=== PATIENT | female | born 1965 | race African-American/Black ===

== ENCOUNTER 2018-04-29 20:49 | Inpatient (IN) | payer OTHER ==
--- NOTE | 2018-04-29 22:59 | PDOC ---
History of Present Illness - General Stated Complaint: HYPERTENSION Time Seen by Provider: 04/29/18 22:25 History Source: Patient Exam Limitations: No Limitations - History of Present Illness Initial Comments: 52 y/o female presenting to [facility] ER from [facility] for elevated blood pressure. Pt denies symptoms, no chief complaint. States she would not be aware her blood pressure was elevated if it had not been checked. Pt has h/o HTN managed with Clonidine and Metoprolol XR. Per chart, pt took clonidine 0.1 mg and metropolol XR 50 mg at 17:00 today. Pt transported here for persistent HTN. PCP: [facility] in [place]. Has not been evaluated in a long time. States she has enough prescription medication. Medical Hx: - HTN - Insulin dependent diabetes - Tremor - Diabetic Neuropathy Surgical Hx: - Pt denies surgical history. Past History - Past Medical History Allergies/Adverse Reactions: Allergies Allergy/AdvReac Type Severity Reaction Status Date / Time No Known Allergies Allergy Verified 04/29/18 16:58 Home Medications: Ambulatory Orders Clonidine HCl 0.1 mg PO BID 04/29/18 Clotrimazole/Betamethasone Dip [Clotrimazole-Betamethasone Crm] 45 gm TP BID Gabapentin [Neurontin -] 300 mg PO BID 04/29/18 Insulin Glargine,Hum.rec.anlog [Lantus Solostar PEN (NF)] 20 units SQ DAILY Insulin Glargine,Hum.rec.anlog [Lantus Solostar PEN (NF)] 30 units SQ HS Metoprolol Succinate [Toprol Xl -] 50 mg PO DAILY 04/29/18 Multivitamins [Tab-A-Vit -] 1 tab PO DAILY 04/29/18 Omeprazole 20 mg PO DAILY 04/29/18 Review of Systems - Review of Systems Able to Perform ROS?: Yes Comments:: In addition to that documented in the HPI above, the additional ROS was obtained : Constitutional: Denies fevers or chills Eyes: Denies vision changes ENMT: Denies sore throat CV: Denies chest pain Resp: Denies SOB GI: Denies vomiting or diarrhea : Denies painful urination MSK: Denies recent trauma Skin: Denies new rashes Neuro: Denies new numbness or tingling or weakness *Physical Exam - Physical Exam Comments: Constitutional: Well-developed, well-nourished female in no acute distress. Found semi-fowlers in hospital bed. Alert and oriented x4. Answered all questions appropriately and completely. Speech was non-labored, non-pressured. HEENT: Normocephalic. No obvious external signs of trauma. Hearing grossly normal. No nasal discharge. Neck is supple, trachea is midline. Cardiovascular: Regular rate and regular rhythm. No murmur, rubs, clicks, or gallops. Peripheral pulses: Radial pulses full. Respiratory: Breathing unlabored. Equal chest rise and fall. Clear to auscultation bilaterally. No stridor, no wheezing, no rhonchi. Gastrointestinal: abdomen is soft, non-tender, non-distended. Neuro: Alert and oriented. Moving all four extremities spontaneously. Intact sensation to all four extremities. Upper and lower proximal and distal strength 5/5, property management assistant strength 5/5 - equal and symmetric. Plantar flexion and dorsiflexion 5 /5. Head and neck tremor (baseline per pt). Skin: Warm, dry, and intact. No bruising, rashes, or other lesions. Psych: Affect: appropriate. Mood: normal. ED Treatment Course - LABORATORY CBC & Chemistry Diagram: 05/02/18 06:00 05/02/18 06:00 Medical Decision Making - Medical Decision Making *Reviewed vital signs, nursing notes, and prior visit documentation (if available). 52 y/o female with hypertension noted at [facility] despite administration of home medications. Pt denies symptoms. Afebrile. Benign physical exam. Right arm BP: 142/93 Left arm BP: 226/95 (confirmed with second machine) CBC unremarkable for anemia or leukocytosis. CMP revealed azotemia. Suspect pre-renal as ratio is 19. No prior labs available for comparison. Pt denies knowledge of h/o renal pathology. Suspect ANITHA versus CKD with possible overlying ANITHA. Will order NS IV drip. On recheck, pts blood pressure remains elevated and is now equal bilaterally. Will ordered dose of home clonidine. 02:36 Microblog sent to [facility] for admission for ANITHA and hypertensive urgency. 03:17 Hospitalist attending requests pt to be sent to the unit and started on dip. Telephone consult with ICU resident Dr. Casey. Will recheck vitals as pt received clonidine one hour ago, and report back. 03:33 BP elevated to 220/52. Will stop NS drip and start nicardipine drip. Requested pt to be moved to a room with q15 vitals. Initial MAP 150, goal to drop MAP 20% to 120. 04:[address] Casey pts new vitals signs on the nicardipine. States pt can be sent to the ICU unit when the admitting team finished their bedside evaluation. *DC/Admit/Observation/Transfer Diagnosis at time of Disposition: ANITHA (acute kidney injury), Hypertensive urgency - Discharge Dispostion Condition at time of disposition: Fair Decision to Admit order: Yes - Referrals - Patient Instructions - Post Discharge Activity
[2018-04-30 00:20] LABS: BASO % 0.4 % (0-2.0); HEMATOCRIT 29.7 % (32.4-45.2); HEMOGLOBIN 9.8 GM/dL (10.7-15.3); LYMPH % 29.5 % (8-40); MCH 30.6 pg (25.7-33.7); MCHC 32.9 g/dl (32.0-36.0); MEAN CELL VOLUME 92.9 fl (80-96); MEAN PLT VOLUME 9.8 fl (7.5-11.1); MONO % 8.3 % (3.8-10.2); NEUT % 59.8 % (42.8-82.8); PLATELET COUNT 170 K/MM3 (134-434); RBC 3.19 M/mm3 (3.60-5.2); WHITE BLOOD COUNT 5.4 K/mm3 (4.0-10.0)
--- NOTE | 2018-04-30 00:36 | PDOC ---
Attending Attestation - Resident Resident Name: Leandro Gonzalez - ED Attending Attestation I have performed the following: I have examined & evaluated the patient, The case was reviewed & discussed with the resident, I agree w/resident's findings & plan, Exceptions are as noted - HPI HPI: 04/30/18 00:33 The patient is a 52 year old female, with a significant past medical history of IDDM, HTN, and polysubstance abuse (heroin, alcohol, and benzo dependence), who presents to the emergency department with elevated blood pressure. As per [facility], she was given clonidine 0.1 mg and metoprolol XR 50 mg at 5:00pm. Upon arrival, the patient is asymptomatic. She denies recent fevers, chills, headache or dizziness. She denies recent nausea, vomit, diarrhea or constipation. She denies recent dysuria, frequency, urgency or hematuria. She denies recent chest pain or shortness of breath. Allergies: NKA Past surgical history: None reported. Social history: Polysubstance abuse- heroin, alcohol, and benzo dependence. - Physicial Exam PE: 04/30/18 00:34 GENERAL: Awake, alert, and fully oriented, in no acute distress HEAD: No signs of trauma EYES: PERRLA, EOMI, sclera anicteric, conjunctiva clear ENT: Auricles normal inspection, hearing grossly normal, nares patent, oropharynx clear without exudates. Moist mucosa NECK: Normal ROM, supple, no lymphadenopathy, JVD, or masses LUNGS: Breath sounds equal, clear to auscultation bilaterally. No wheezes, and no crackles HEART: Regular rate and rhythm, normal S1 and S2, no murmurs, rubs or gallops ABDOMEN: Soft, nontender, normoactive bowel sounds. No guarding, no rebound. No masses EXTREMITIES: Normal range of motion, no edema. No clubbing or cyanosis. No cords, erythema, or tenderness NEUROLOGICAL: Normal speech, cranial nerves intact, negative pronator drift, 5/ 5 strength in all 4 extremities, normal sensation to light touch in all 4 extremities, normal cerebellar exam, normal gait, normal reflexes and tone SKIN: Warm, Dry, normal turgor, no rashes or lesions noted. - Medical Decision Making 04/30/18 00:48 52yo undomiciled F with hx HTN, IDDM, PSA presents to the ED with elevated BP. BP asymmetric btwn arm. Pt also with ANITHA and creatinine of 3.3. Has no hx renal failure. Will admit for further mgmt.
[2018-04-30 00:41] LABS: ALBUMIN 3.3 g/dl (3.4-5.0); ANION GAP 6 MMOL/L (8-16); BLOOD UREA NITROGEN 63 mg/dL (7-18); CALCIUM 9.1 mg/dL (8.5-10.1); CHLORIDE 107 mmol/L (98-107); CO2 29 mmol/L (21-32); CREATININE 3.3 mg/dL (0.55-1.3); GLUCOSE,RANDOM 135 mg/dL (74-106); POTASSIUM 4.4 mmol/L (3.5-5.1); SGOT/AST 43 U/L (15-37); SGPT/ALT 43 U/L (13-61); SODIUM 142 mmol/L (136-145)
[2018-04-30 00:42] LABS: ALK PHOS 114 U/L (45-117); BILIRUBIN,TOTAL 0.3 mg/dL (0.2-1)
[2018-04-30] MEDS ORDERED: SODIUM CHLORIDE 1,000 ML IV SCH (02:15)
[2018-04-30] MEDS ORDERED: cloNIDine HCL 0.1 MG TABLET PO ONE ×2 (02:31→08:50)
[2018-04-30] MEDS ORDERED: cloNIDine HCL 0.1 MG TABLET ONE (02:43)
[2018-04-30] MEDS ORDERED: NICARDIPINE 25 MG in DEXTROSE 5%-WATER - 240 ML IVPB SCH (03:45)
--- NOTE | 2018-04-30 05:22 | CONSULT ---
Consultation: CONSULT REQUEST: We have been asked to medically evaluate this patient for critical care. HISTORY OF PRESENT ILLNESS: 52 y/o F w/PMH of HTN, Hep C, pancreatitis, DM, multisubstance abuse (heroin - snorts 7-10 bags/day, xanax, percocet, alcohol three 16 ounce beers/day; states last use for any substance was 1 week ago) presents to the ER from [facility] where she was checking in for rehab. She was found to have elevated BP 200/100 and sent to [facility]. Pt states she takes clonidine and metoprolol daily and is compliant but forgot to take it yesterday. She is homeless but her sister buys her the medications she needs and has been doing so for years. Currently the pt denies any IQBAL, light-headedness, dizziness, visual changes, tinnitus, N/V/F/C , CP, SOB, abd pain, dysuria, blood in urine, diarrhea, constipation. She denies any hx of kidney disease but notes that many years ago she had gotten abx as an outpatient and was referred to a electrical plumbing supervisor but never followed up. PMH: HTN, Hep C (not treated), DM, multisubstance abuse (heroin - snorts 7-10 bags/day, xanax, percocet, alcohol three 16 ounce beers/day; states last use for any substance was 1 week ago) PSHx: denies any surgeries SH: -Never been hospitalized in the past -Homeless -Smokes 1ppd -snorts heroin 7-10 bags/day, uses xanax and percocet when she can get them. Last use for any of the substances was reportedly 1 week ago. -Drinks 3 sixteen ounce beers/day; last use was reportedly 1 week ago FH: DM, Heart conditions Allergies: NKDA Meds: Clonidine, Metoprolol. Her sister has been buying them for her for years. REVIEW OF SYSTEMS: CONSTITUTIONAL: Absent: fever, chills, diaphoresis HEENT: Absent: tinnitus, visual changes CARDIOVASCULAR: Absent: chest pain, light-headedness RESPIRATORY: Absent: cough, shortness of breath GASTROINTESTINAL: Absent: abdominal pain, nausea, vomiting, diarrhea, constipation GENITOURINARY: Absent: dysuria, hematuria NEUROLOGIC: Absent: headache, focal weakness, dizziness PHYSICAL EXAMINATION Vital Signs - 24 hr 04/29/18 04/30/18 04/30/18 21:05 02:19 03:47 Temperature 97.7 F 97.7 F Pulse Rate 60 Pulse Rate [ 61 54 L Right Radial] Respiratory 17 16 14 Rate Blood Pressure 208/52 Blood Pressure 211/52 259/96 [Left Arm] O2 Sat by Pulse 100 100 99 Oximetry (%) 04/30/18 04/30/18 04:05 04:34 Temperature Pulse Rate 61 Pulse Rate [ 80 Right Radial] Respiratory 29 H Rate Blood Pressure 259/96 Blood Pressure 195/79 [Left Arm] O2 Sat by Pulse 97 Oximetry (%) GENERAL: Awake, alert, and fully oriented, in no acute distress. HEAD: Normal with no signs of trauma. EYES: Pupils equal, round and reactive to light, extraocular movements intact, sclera anicteric, conjunctiva clear. No papilledema noted on fundoscopy. EARS, NOSE, THROAT: Ears normal, nares patent, Moist mucous membranes. NECK: Normal range of motion LUNGS: Breath sounds equal, clear to auscultation bilaterally HEART: Regular rate and rhythm, normal S1 and S2 ABDOMEN: Soft, nontender, not distended, normoactive bowel sounds LOWER EXTREMITIES: warm, well-perfused. No peripheral edema. NEUROLOGICAL: Cranial nerves intact. 5/5 UE and LE strength. Sensation to light touch intact and equal in b/l UE and LE. PSYCHIATRIC: Cooperative. Good eye contact. Appropriate mood and affect. SKIN: Warm, dry Laboratory Results - last 24 hr 04/29/18 04/29/18 23:57 23:57 WBC 5.4 RBC 3.19 L Hgb 9.8 L Hct 29.7 L MCV 92.9 MCH 30.6 MCHC 32.9 RDW 15.0 Plt Count 170 MPV 9.8 Absolute Neuts (auto) 3.2 Neutrophils % 59.8 Lymphocytes % 29.5 Monocytes % 8.3 Eosinophils % 2.0 Basophils % 0.4 Nucleated RBC % 0 Sodium 142 Potassium 4.4 Chloride 107 Carbon Dioxide 29 Anion Gap 6 L BUN 63 H Creatinine 3.3 H Creat Clearance w eGFR 14.80 Random Glucose 135 H Calcium 9.1 Total Bilirubin 0.3 AST 43 H ALT 43 Alkaline Phosphatase 114 Total Protein 7.0 Albumin 3.3 L Active Medications Generic Name Dose Route Start Last Admin Trade Name Freq PRN Reason Stop Dose Admin Chlorhexidine Gluconate 1 applic 04/30/18 22:00 Hibiclens For Decolonization - TP HS MARTINA Heparin Sodium (Porcine) 5,000 unit 04/30/18 10:00 Heparin - SQ Q8H-IV MARTINA Nicardipine HCl 25 mg/ 250 mls @ 25 mls/hr 04/30/18 03:45 04/30/18 04:05 Dextrose IVPB 2.5 mg/hr TITR MARTINA 25 mls/hr Administration Protocol 2.5 MG/HR Mupirocin 1 applic 04/30/18 10:00 Bactroban Ointment (For Decolonization) - NS 05/05/18 09:59 BID MARTINA ASSESSMENT/PLAN: 52 y/o F w/PMH of HTN, Hep C, pancreatitis, DM, multisubstance abuse (heroin - snorts 7-10 bags/day, xanax, percocet, alcohol three 16 ounce beers/day; states last use for any substance was 1 week ago) presents to the ER from [facility] for elevated BP. In ICU for hypertensive emergency vs urgency. -Hypertensive Emergency vs Urgency -Pt has elevated Cr but unknown baseline. No other signs of organ damage noted. -BP in ER was 259/96 -Pt was given Clonidine 0.1 mg PO in ER with no effect on BP and was started on nicardipine drip at 2.5 mg/hr and BP came down to 140/104. Drip is currently held. -Will continue with nicardipine drip with goal sBP of 200 initially within 1st hour. Titrate to goal of 180 after initial improvement to approximately sBP to 200. -Continue with home meds of clonidine 0.1 mg po bid, toprol xl 50 qd -f/u Head CT, UA, Utox, trops -Possible ANITHA on CKD -No baseline Cr in chart and pt does not know if she has kidney disease -Monitor BUN/Cr -Will hold off on fluids for now with HTN -Check FeNa -Renal U/S -DM -ISS, BGMs -Multisubstance abuse -Monitor for signs of withdrawal. Pt uses alcohol, benzos, opioids -DVT ppx -heparin 5000 units sq q8h -FEN -No fluids -Monitor electrolytes -If no signs of stroke can start diet -Dispo -Monitor in the ICU Visit type - Emergency Visit Emergency Visit: Yes ED Registration Date: 04/30/18 Care time: The patient presented to the Emergency Department on the above date and was hospitalized for further evaluation of their emergent condition. - New Patient This patient is new to me today: Yes Date on this admission: 04/30/18 - Critical Care Critical Care patient: Yes Total Critical Care Time (in minutes): 40 Critical Care Statement: The care of this patient involved high complexity decision making to prevent further life threatening deterioration of the patient 's condition and/or to evaluate & treat vital organ system(s) failure or risk of failure.
[2018-04-30 05:25] LABS: URINE APPEARANCE CLEAR; URINE BILIRUBIN NEGATIVE (<2.0 mg/dL); URINE COLOR STRAW; URINE GLUCOSE (UA) NEGATIVE (NEGATIVE); URINE KETONE NEGATIVE (NEGATIVE); URINE LEUK ESTERASE TRACE (NEGATIVE); URINE NITRITE NEGATIVE (NEGATIVE); URINE UROBILINOGEN NEGATIVE mg/dL (0.2-1.0)
[2018-04-30 05:26] LABS: URINE CREATININE 31.5 mg/dL (30-50)
[2018-04-30 05:29] LABS: OPIATES, URI NEGATIVE ng/ml (CUTOFF=300); URINE AMPHETAMINES NEGATIVE ng/ml (CUTOFF=500)
--- NOTE | 2018-04-30 05:36 | HP ---
CHIEF COMPLAINT: elevated blood pressure PCP: HISTORY OF PRESENT ILLNESS: 52 y/o female with PMH of HTN, DM, Hepc, pancreatitis, polysubstance abuse ( abuses heroin and opiates), presents to the ED from [facility] rehab center after patient was found to have a BP of 200/100. Patient was checking in to [facility] for rehab. She states that her BP is never usually this high and she has never been hospitalized for having high blood pressure in the past. Patient is homeless and goes to multiple free clinics around the city for her healthcare maintenance, however, she does take medications for her health problems. Patient is currently denying any headaches/blurred vision and is not experiencing any chest pain or trouble breathing, though she was lethargic during the interview. ER course was notable for: (1) BP on arrival was 208/52; patient given clonidine 0.1 and BP stayed elevated with max being 259/96 (2) after clonidine; patient started on nicardipine drip and transferred to ICU (3) head CT done given patients change in mental status and increased lethargy (4)patient found to have elevated BUN/Cr- baseline is unclear however patient was told to stya away from ibuprofen because of her kidneys Recent Travel: none PAST MEDICAL HISTORY: see above PAST SURGICAL HISTORY: denies Social History: Smoking: .5 ppd smoker for many years Alcohol: drinks 3-4 beers a day Drugs: abuses heroin and opiates; last drug use was last week according to patient Family History: DM and HTN on mother and fathers side Allergies No Known Allergies Allergy (Verified 04/29/18 16:58) HOME MEDICATIONS: Home Medications Medication Instructions Recorded Clonidine HCl 0.1 mg PO BID 04/29/18 Clotrimazole/Betamethasone Dip 45 gm TP BID 04/29/18 [Clotrimazole-Betamethasone Crm] Gabapentin [Neurontin -] 300 mg PO BID 04/29/18 Insulin Glargine,Hum.rec.anlog 20 units SQ DAILY 04/29/18 [Lantus Solostar PEN (NF)] Insulin Glargine,Hum.rec.anlog 30 units SQ HS 04/29/18 [Lantus Solostar PEN (NF)] Metoprolol Succinate [Toprol Xl -] 50 mg PO DAILY 04/29/18 Multivitamins [Tab-A-Vit -] 1 tab PO DAILY 04/29/18 Omeprazole 20 mg PO DAILY 04/29/18 REVIEW OF SYSTEMS CONSTITUTIONAL: Absent: fever, chills, diaphoresis, generalized weakness, malaise, loss of appetite, weight change HEENT: Absent: rhinorrhea, nasal congestion, throat pain, throat swelling, difficulty swallowing, mouth swelling, ear pain, eye pain, visual changes CARDIOVASCULAR: Absent: chest pain, syncope, palpitations, irregular heart rate, lightheadedness , peripheral edema RESPIRATORY: Absent: cough, shortness of breath, dyspnea with exertion, orthopnea, wheezing, stridor, hemoptysis GASTROINTESTINAL: Absent: abdominal pain, abdominal distension, nausea, vomiting, diarrhea, constipation, melena, hematochezia GENITOURINARY: Absent: dysuria, frequency, urgency, hesitancy, hematuria, flank pain, genital pain MUSCULOSKELETAL: Absent: myalgia, arthralgia, joint swelling, back pain, neck pain SKIN: Absent: rash, itching, pallor HEMATOLOGIC/IMMUNOLOGIC: Absent: easy bleeding, easy bruising, lymphadenopathy, frequent infections ENDOCRINE: Absent: unexplained weight gain, unexplained weight loss, heat intolerance, cold intolerance NEUROLOGIC: Absent: headache, focal weakness or paresthesias, dizziness, unsteady gait, seizure, mental status changes, bladder or bowel incontinence PSYCHIATRIC: Absent: anxiety, depression, suicidal or homicidal ideation, hallucinations. PHYSICAL EXAMINATION Vital Signs - 24 hr 04/29/18 04/30/18 04/30/18 21:05 02:19 03:47 Temperature 97.7 F 97.7 F Pulse Rate 60 Pulse Rate [ 61 54 L Right Radial] Respiratory 17 16 14 Rate Blood Pressure 208/52 Blood Pressure 211/52 259/96 [Left Arm] O2 Sat by Pulse 100 100 99 Oximetry (%) 04/30/18 04/30/18 04:05 04:34 Temperature Pulse Rate 61 Pulse Rate [ 80 Right Radial] Respiratory 29 H Rate Blood Pressure 259/96 Blood Pressure 195/79 [Left Arm] O2 Sat by Pulse 97 Oximetry (%) GENERAL: lethargic, somnolent but arousable . EYES: Pupils equal, round and reactive to light, extraocular movements intact, sclera anicteric, conjunctiva clear. No lid lag. NECK: no JDV appreciated LUNGS: CTA B/L; no rales, rhonchi, or wheezing . HEART: Regular rate and rhythm, normal S1 and S2 without murmur, rub or gallop. ABDOMEN: Soft, nontender, not distended, normoactive bowel sounds, no guarding, no rebound, no masses. No hepatomegaly or splenomegaly. MUSCULOSKELETAL: Normal range of motion at all joints. No bony deformities or tenderness. No CVA tenderness. EXTREMITIES: warm; well-perfused; no clubbing/cyanosis/edema NEUROLOGICAL: Cranial nerves II-XII intact. Normal speech. Normal gait. 5/5 strength B/L; sensation fully intact PSYCHIATRIC: Cooperative. Good eye contact. Appropriate mood and affect. SKIN: Warm, dry, normal turgor, no rashes or lesions noted, normal capillary refill. Laboratory Results - last 24 hr 04/29/18 04/29/18 23:57 23:57 WBC 5.4 RBC 3.19 L Hgb 9.8 L Hct 29.7 L MCV 92.9 MCH 30.6 MCHC 32.9 RDW 15.0 Plt Count 170 MPV 9.8 Absolute Neuts (auto) 3.2 Neutrophils % 59.8 Lymphocytes % 29.5 Monocytes % 8.3 Eosinophils % 2.0 Basophils % 0.4 Nucleated RBC % 0 Sodium 142 Potassium 4.4 Chloride 107 Carbon Dioxide 29 Anion Gap 6 L BUN 63 H Creatinine 3.3 H Creat Clearance w eGFR 14.80 Random Glucose 135 H Calcium 9.1 Total Bilirubin 0.3 AST 43 H ALT 43 Alkaline Phosphatase 114 Total Protein 7.0 Albumin 3.3 L ASSESSMENT/PLAN: 52 y/o female with PMH of HTN, DM, Hep C, pancreatitis, polysubstance abuse who presents to the ED after being sent from [facility] where she was found to have an elevated BP of 200/100, now found to be slightly more lethargic than originally on presentation; max BP was 269/96. # Hypertensive Emergency patient currently on a nicardipine drip for BP control- titrate to goal of systolic BP of 180; avoid rapid drop in BP -f/u results of head CT - troponin pending - neuro checks if necessary -c/w home meds clonidine 0.1, toprol XL 50 -f/u utox/ua # ANITHA v. CKD patients baseline Cr unclear as no prior records in system and patient unaware if she has kidney disease -Renal U/S pending -f/u urine electrolytes -monitor BUN/Cr -avoid nephrotoxic drugs -hold off fluids for now given HTN -monitor I's and O's #DM -hold patients home diabetes medications -started patient on ISS DVT prophylaxis: Heparin 5000 SQ TID F/E/N hold off fluids replete electrolytes if needed diabetic diet dispo: ICU Problem List - Problem (1) ANITHA (acute kidney injury) Code(s): N17.9 - ACUTE KIDNEY FAILURE, UNSPECIFIED (2) Hypertensive urgency Code(s): I16.0 - HYPERTENSIVE URGENCY Visit type - Emergency Visit Emergency Visit: Yes ED Registration Date: 04/30/18 Care time: The patient presented to the Emergency Department on the above date and was hospitalized for further evaluation of their emergent condition. - New Patient This patient is new to me today: Yes Date on this admission: 04/30/18 - Critical Care Critical Care patient: No Hospitalist Screening - Colonoscopy Questionnaire Colonoscopy Questionnaire: Colonoscopy Questionnaire - Patient: 50 - 75 years old and never had a screening colonoscopy: Unknown History of colon or rectal polyps, or CA: Unknown History of IBD, Crohn's disease or UC: Unknown History of abdominal radiation therapy as a child: Unknown - Relative: 1 with colon or rectal CA, or polyps at age 60 or younger: Unknown Colon or rectal CA diagnosed at age 45 or younger: Unknown Multiple relatives with colon or rectal CA: Unknown - Outcome: Screening Result: Negative Screen
[2018-04-30 05:40] LABS: COCAINE, UR NEGATIVE ng/ml (CUTOFF=300); METHADONE, UR NEGATIVE ng/ml (CUTOFF=300); PHENCYCLIDINE,URINE NEGATIVE ng/ml (CUTOFF=25); URINE BARBITURATES NEGATIVE ng/ml (CUTOFF=200)
[2018-04-30] MEDS: HEPARIN NA (PORCINE) 5,000 UNITS/ML 1ML VIAL SQ SCH ×3 (05:48→21:44)
[2018-04-30 05:49] LABS: URINE BENZODIAZEPINES POSITIVE ng/ml (CUTOFF=200)
[2018-04-30 05:52] LABS: URINE PROTEIN 2+ (NEGATIVE)
[2018-04-30 05:57] LABS: EPI CELLS RARE /HPF (FEW); GRANULAR CASTS 1 /lpf; URINE BACTERIA RARE /hpf (NONE SEEN)
--- NOTE | 2018-04-30 05:57 | PN ---
Teaching Attending Note Name of Resident: Naya Blake ATTENDING PHYSICIAN STATEMENT I saw and evaluated the patient. Chart, data, imaging reviewed. I reviewed the resident's note and discussed the case with the resident. I agree with the resident's findings and plan as documented. SUBJECTIVE: 52 y/o undomiciled woman polysubstance abuse (abuses heroin and opiates) sent from [facility] detox facility to [facility] for severe hypertension management which did not respond to clonidine given in [facility]. Patient with systolic 208 upon arrival to [facility]. No complaints. She is unsure if she had any past history of kidney disease. OBJECTIVE: Last Vital Signs Temp Pulse Resp BP Pulse Ox 98.0 F 62 14 196/84 97 04/30/18 05:03 04/30/18 05:03 04/30/18 05:03 04/30/18 05:03 04/30/18 04:34 general- aaox3, nontoxic heent- no scleral pallor or injection neck -supple, jvd cv - s1+S2+rrr chest clear abdomen -soft, nt, bs+, no cva tenderness ext -no pedal edema Abnormal Lab Results 04/29/18 04/29/18 04/30/18 23:57 23:57 04:55 RBC 3.19 L Hgb 9.8 L Hct 29.7 L Anion Gap 6 L BUN 63 H Creatinine 3.3 H Random Glucose 135 H AST 43 H Albumin 3.3 L Urine Protein 2+ H Benzodiazepines Screen 04/30/18 04/30/18 04:55 04:55 RBC Hgb Hct Anion Gap BUN Creatinine Random Glucose AST Albumin Urine Protein 93 H Benzodiazepines Screen Positive A* ekg- no acute ischemic changes appreciated ASSESSMENT AND PLAN: #Hypertensive emergency with possible ANITHA (unknown baseline cr). May be refractory hypertension if pt stopped clonidine. Would also r/o acute intracranial events given previous lethargy. -admit to ICU -nicardipine drip ordered -goal- lower BP by 25% in first 4 hrs -order troponin -head CT to r/o intracranial hemorrhage -UA -urine drug screen #ANITHA vs CKD - no baseline to compare -beckman catheter -i/o -daily weights -avoid nephrotoxins -renal u/s -obtain baseline kidney function info from outside pcp -urine lytes -urine osm, serum osm -heparin sc for dvt ppx
[2018-04-30] MEDS: INSULIN SLIDING SCALE (NOVOLOG) 1 VIAL SQ SCH ×4 (06:18→21:46)
[2018-04-30 08:20] LABS: BASO % 0.4 % (0-2.0); EOS % 2.1 % (0-4.5); HEMATOCRIT 31.4 % (32.4-45.2); HEMOGLOBIN 10.5 GM/dL (10.7-15.3); LYMPH % 26.6 % (8-40); MCH 31.1 pg (25.7-33.7); MCHC 33.4 g/dl (32.0-36.0); MEAN CELL VOLUME 93.1 fl (80-96); MEAN PLT VOLUME 9.5 fl (7.5-11.1); NEUT % 63.9 % (42.8-82.8); PLATELET COUNT 166 K/MM3 (134-434); RBC 3.37 M/mm3 (3.60-5.2); RDW 14.8 % (11.6-15.6)
[2018-04-30 08:57] LABS: CHLORIDE 110 mmol/L (98-107); SODIUM 145 mmol/L (136-145)
[2018-04-30 09:10] LABS: ALBUMIN 3.3 g/dl (3.4-5.0); ALK PHOS 113 U/L (45-117); ANION GAP 8 MMOL/L (8-16); BILIRUBIN,TOTAL 0.3 mg/dL (0.2-1); BLOOD UREA NITROGEN 55 mg/dL (7-18); CALCIUM 9.5 mg/dL (8.5-10.1); CHOLESTEROL 212 mg/dL (50-200); CO2 27 mmol/L (21-32); CREATININE 3.1 mg/dL (0.55-1.3); GLUCOSE,RANDOM 78 mg/dL (74-106); HDL CHOLESTEROL 78 mg/dL (40-60); MAGNESIUM 2.2 mg/dL (1.8-2.4); PHOSPHOROUS 3.7 mg/dL (2.5-4.9); SGOT/AST 42 U/L (15-37); SGPT/ALT 44 U/L (13-61); TRIGLYCERIDES 131 mg/dL (0-150)
--- NOTE | 2018-04-30 09:16 | PN ---
Physical Exam: SUBJECTIVE: Patient seen and examined this AM. No acute events overnight, although BP still elevated this AM with systolic up to 150-170s. Pt asymptomatic , denies chest pain, SOB, vision changes, head pain, nausea/vomiting. She has been passing urine without difficulty and tolerating PO intake. OBJECTIVE: Vital Signs Period Temp Pulse Resp BP Sys/Lo[place]on Pulse Ox Last 24 Hr 97.7 F-98.0 F 54-80 14-29 171-259/52-96 97-100 GENERAL: The patient is awake, alert, and fully oriented, in no acute distress. HEAD: Normal with no signs of trauma. EYES: PERRL, extraocular movements intact, sclera anicteric, conjunctiva clear. No ptosis. Fundoscopic exam: showed dilation of vessels, no obvious hemorrhage. Difficult to visualize without dilation. Could not visualize optic disc. ENT: Ears normal, nares patent, oropharynx clear without exudates, moist mucous membranes. NECK: Trachea midline, full range of motion, supple. LUNGS: Breath sounds equal, clear to auscultation bilaterally, no wheezes, no crackles, no accessory muscle use. HEART: Regular rate and rhythm, S1, S2 without murmur, rub or gallop. ABDOMEN: Soft, nontender, nondistended, normoactive bowel sounds, no guarding, no rebound, no hepatosplenomegaly, no masses. EXTREMITIES: 2+ pulses, warm, well-perfused, no edema. NEUROLOGICAL: Pt has b/l hand tremor and head tremor, which she states is baseline for her. Cranial nerves II through XII grossly intact. Slow speech, gait normal. PSYCH: Normal mood, normal affect, pt very cooperative with exam and questioning. SKIN: Warm, dry, normal turgor, no rashes or lesions noted. Laboratory Results - last 24 hr 04/29/18 04/29/18 04/30/18 23:57 23:57 04:55 WBC 5.4 RBC 3.19 L Hgb 9.8 L Hct 29.7 L MCV 92.9 MCH 30.6 MCHC 32.9 RDW 15.0 Plt Count 170 MPV 9.8 Absolute Neuts (auto) 3.2 Neutrophils % 59.8 Lymphocytes % 29.5 Monocytes % 8.3 Eosinophils % 2.0 Basophils % 0.4 Nucleated RBC % 0 Sodium 142 Potassium 4.4 Chloride 107 Carbon Dioxide 29 Anion Gap 6 L BUN 63 H Creatinine 3.3 H Creat Clearance w eGFR 14.80 POC Glucometer Random Glucose 135 H Hemoglobin A1c % Calcium 9.1 Phosphorus Magnesium Total Bilirubin 0.3 AST 43 H ALT 43 Alkaline Phosphatase 114 Troponin I Total Protein 7.0 Albumin 3.3 L Triglycerides Cholesterol Total LDL Cholesterol HDL Cholesterol Urine Color Straw Urine Appearance Clear Urine pH 7.0 Ur Specific White 1.008 Urine Protein 2+ H Urine Glucose (UA) Negative Urine Ketones Negative Urine Blood Negative Urine Nitrite Negative Urine Bilirubin Negative Urine Urobilinogen Negative Ur Leukocyte Esterase Trace Urine WBC (Auto) 3 Urine RBC (Auto) <1 Ur Epithelial Cells Rare Urine Bacteria Rare Granular Casts 1 Ur Random Sodium Urine Creatinine Opiates Screen Methadone Screen Barbiturate Screen Phencyclidine Screen Ur Amphetamines Screen MDMA (Ecstasy) Screen Benzodiazepines Screen Cocaine Screen U Marijuana (THC) Screen 04/30/18 04/30/18 04/30/18 04:55 04:55 04:55 WBC RBC Hgb Hct MCV MCH MCHC RDW Plt Count MPV Absolute Neuts (auto) Neutrophils % Lymphocytes % Monocytes % Eosinophils % Basophils % Nucleated RBC % Sodium Potassium Chloride Carbon Dioxide Anion Gap BUN Creatinine Creat Clearance w eGFR POC Glucometer Random Glucose Hemoglobin A1c % Calcium Phosphorus Magnesium Total Bilirubin AST ALT Alkaline Phosphatase Troponin I < 0.02 Total Protein Albumin Triglycerides Cholesterol Total LDL Cholesterol HDL Cholesterol Urine Color Urine Appearance Urine pH Ur Specific White Urine Protein 93 H Urine Glucose (UA) Urine Ketones Urine Blood Urine Nitrite Urine Bilirubin Urine Urobilinogen Ur Leukocyte Esterase Urine WBC (Auto) Urine RBC (Auto) Ur Epithelial Cells Urine Bacteria Granular Casts Ur Random Sodium 88 Urine Creatinine 31.5 Opiates Screen Negative Methadone Screen Negative Barbiturate Screen Negative Phencyclidine Screen Negative Ur Amphetamines Screen Negative MDMA (Ecstasy) Screen Negative Benzodiazepines Screen Positive A* Cocaine Screen Negative U Marijuana (THC) Screen Negative 04/30/18 04/30/18 04/30/18 05:45 07:40 07:40 WBC 5.0 RBC 3.37 L Hgb 10.5 L Hct 31.4 L MCV 93.1 MCH 31.1 MCHC 33.4 RDW 14.8 Plt Count 166 MPV 9.5 Absolute Neuts (auto) 3.2 Neutrophils % 63.9 Lymphocytes % 26.6 Monocytes % 7.0 Eosinophils % 2.1 Basophils % 0.4 Nucleated RBC % 0 Sodium 145 Potassium 4.0 Chloride 110 H Carbon Dioxide 27 Anion Gap 8 BUN 55 H Creatinine 3.1 H Creat Clearance w eGFR 15.90 POC Glucometer 170.14643 Random Glucose 78 Hemoglobin A1c % Calcium 9.5 Phosphorus 3.7 Magnesium 2.2 Total Bilirubin 0.3 AST 42 H ALT 44 Alkaline Phosphatase 113 Troponin I Total Protein 7.0 Albumin 3.3 L Triglycerides 131 Cholesterol 212 H Total LDL Cholesterol 116 H HDL Cholesterol 78 H Urine Color Urine Appearance Urine pH Ur Specific White Urine Protein Urine Glucose (UA) Urine Ketones Urine Blood Urine Nitrite Urine Bilirubin Urine Urobilinogen Ur Leukocyte Esterase Urine WBC (Auto) Urine RBC (Auto) Ur Epithelial Cells Urine Bacteria Granular Casts Ur Random Sodium Urine Creatinine Opiates Screen Methadone Screen Barbiturate Screen Phencyclidine Screen Ur Amphetamines Screen MDMA (Ecstasy) Screen Benzodiazepines Screen Cocaine Screen U Marijuana (THC) Screen 04/30/18 04/30/18 07:40 07:40 WBC RBC Hgb Hct MCV MCH MCHC RDW Plt Count MPV Absolute Neuts (auto) Neutrophils % Lymphocytes % Monocytes % Eosinophils % Basophils % Nucleated RBC % Sodium Potassium Chloride Carbon Dioxide Anion Gap BUN Creatinine Creat Clearance w eGFR POC Glucometer Random Glucose Hemoglobin A1c % 7.5 H Calcium Phosphorus Magnesium Total Bilirubin AST ALT Alkaline Phosphatase Troponin I Total Protein Albumin Triglycerides Cancelled Cholesterol Cancelled Total LDL Cholesterol Cancelled HDL Cholesterol Cancelled Urine Color Urine Appearance Urine pH Ur Specific White Urine Protein Urine Glucose (UA) Urine Ketones Urine Blood Urine Nitrite Urine Bilirubin Urine Urobilinogen Ur Leukocyte Esterase Urine WBC (Auto) Urine RBC (Auto) Ur Epithelial Cells Urine Bacteria Granular Casts Ur Random Sodium Urine Creatinine Opiates Screen Methadone Screen Barbiturate Screen Phencyclidine Screen Ur Amphetamines Screen MDMA (Ecstasy) Screen Benzodiazepines Screen Cocaine Screen U Marijuana (THC) Screen Active Medications Generic Name Dose Route Start Last Admin Trade Name Freq PRN Reason Stop Dose Admin Chlorhexidine Gluconate 1 applic 04/30/18 22:00 Hibiclens For Decolonization - TP HS MARTINA Clonidine 0.1 mg 04/30/18 10:00 Catapres - PO BID MARTINA Heparin Sodium (Porcine) 5,000 unit 04/30/18 06:00 04/30/18 05:48 Heparin - SQ 5,000 unit TID MARTINA Administration Insulin Aspart 1 vial 04/30/18 07:00 09/20/18 06:18 Novolog Vial Sliding Scale - SQ 2 units ACHS MARTINA Administration Protocol Metoprolol Succinate 50 mg 04/30/18 10:00 Toprol Xl - PO DAILY MARTINA Mupirocin 1 applic 04/30/18 10:00 Bactroban Ointment (For Decolonization) - NS 05/05/18 09:59 BID MARTINA ASSESSMENT/PLAN: 52 yo F with PMH of HTN, Hep C, pancreatitis, DM, polystubstance abuse (heroin - snorts 7-10 bags/day, xanax, percocet, alcohol three 16 ounce beers/day; states last use for any substance was 1 week ago). Pt presented to the ER from [facility] for elevated BP. In ICU for hypertensive emergency vs urgency. 1. Neuro -Polysubstance Abuse Pt states she is feeling no withdrawal symptoms at this point, continue to monitor -Pt states she has had vision difficulty seeing up close for the past year; last dilated eye exam was 2 years ago -Head CT negative 2. Cardio -Hypertensive Emergency vs Urgency Pt has elevated Cr but unknown baseline. No other signs of organ damage noted (trop <.02, no ECG changes) BP in ER was 259/96, has improved today. Current BP 166/87, goal is to decrease ~30% on first day. Pt was given Clonidine 0.1 mg PO in ER with no effect on BP and was started on nicardipine drip at 2.5 mg/hr and BP came down to 140/104. Nicardipine drip currently at 1.25 mg/hr, Clonidine .1 mg TID PO, Procardia XL 60 mg PO; taper off the clonidine drip as tolerated -Echo 04/30: ventricular function normal, EF 65-70%; trace tricuspid regurgitation 3. Renal -Possible ANITHA on CKD No baseline Cr in chart and pt does not know if she has kidney disease. 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 Today BUN/Cr 55/3.1 Will hold off on fluids for now with HTN Renal U/S: b/l echogenicity with chronic medical renal ds 4. Endocrine IDDM: ISS, BGMs 5. DVT ppx Heparin 5000 units sq q8h, SCDs 6. FEN No IVF at this point Monitor electrolytes Diabetic and Na-controlled diet Dispo: Monitor in the ICU until hemodynamically stable Problem List - Problems (1) IDDM (insulin dependent diabetes mellitus) Code(s): E11.9 - TYPE 2 DIABETES MELLITUS WITHOUT COMPLICATIONS; Z79.4 - DETENTION (CURRENT) USE OF INSULIN (2) Polysubstance (including opioids) dependence w/o physiol dependence Code(s): F19.20 - OTHER PSYCHOACTIVE SUBSTANCE DEPENDENCE, UNCOMPLICATED (3) ANITHA (acute kidney injury) Code(s): N17.9 - ACUTE KIDNEY FAILURE, UNSPECIFIED (4) Hypertensive urgency Code(s): I16.0 - HYPERTENSIVE URGENCY Visit type - Emergency Visit Emergency Visit: Yes ED Registration Date: 04/30/18 Care time: The patient presented to the Emergency Department on the above date and was hospitalized for further evaluation of their emergent condition. - New Patient This patient is new to me today: Yes Date on this admission: 04/30/18 - Critical Care Critical Care patient: Yes Total Critical Care Time (in minutes): 40 Critical Care Statement: The care of this patient involved high complexity decision making to prevent further life threatening deterioration of the patient 's condition and/or to evaluate & treat vital organ system(s) failure or risk of failure. - Discharge Referral Referred to [facility] Yes
[2018-04-30] MEDS: MUPIROCIN 2% TOPICAL OINTMENT FOR DECOLONIZATION NS SCH ×2 (09:38→21:43)
--- NOTE | 2018-04-30 09:56 | EKG ---
Test Reason : Blood Pressure : / mmHG Vent. Rate : 053 BPM Atrial Rate : 053 BPM P-R Int : 158 ms QRS Dur : 080 ms QT Int : 462 ms P-R-T Axes : 058 035 053 degrees QTc Int : 433 ms SINUS BRADYCARDIA OTHERWISE NORMAL ECG NO PREVIOUS ECGS AVAILABLE Confirmed by RAFY GUILLEN, ASAF ([id number]) on 04/30/2018 9:56:39 AM Referred By: Confirmed By:ASAF HILLMAN MD
[2018-04-30] MEDS ORDERED: cloNIDine HCL 0.1 MG TABLET PO SCH (10:00)
[2018-04-30] MEDS: NICARDIPINE 25 MG in DEXTROSE 5%-WATER - 240 ML IVPB SCH (10:30)
--- NOTE | 2018-04-30 12:13 | PN ---
Teaching Attending Note Name of Resident: Gloria Kee ATTENDING PHYSICIAN STATEMENT I saw and evaluated the patient. I reviewed the resident's note and discussed the case with the resident. I agree with the resident's findings and plan as documented. SUBJECTIVE: Pt seen and examined in the ICU. Remains on cardene gtt. Denies headache, nausea or vomiting. No chest pain or shortness of breath. OBJECTIVE: Vital Signs Period Temp Pulse Resp BP Sys/[place]on Pulse Ox Last 24 Hr 97.7 F-98.3 F 54-80 14-29 150-259/52-96 97-100 Intake & Output 04/27/18 04/28/18 04/29/18 04/30/18 23:59 23:59 23:59 23:59 Intake Total 160 Output Total 500 Balance -340 Weight 64.864 kg 62.766 kg Gen: NAD at rest Heart: RRR Lung: decreased breath sounds at the bases Abd: soft, nontender Ext: no edema CBC, BMP 04/30/18 07:40 04/30/18 07:40 Active Medications Chlorhexidine Gluconate (Hibiclens For Decolonization -) 1 applic TP HS MARTINA Clonidine (Catapres -) 0.1 mg PO BID [facility] Last Admin: 04/30/18 09:38 Dose: Not Given Heparin Sodium (Porcine) (Heparin -) 5,000 unit SQ TID MARTINA Last Admin: 04/30/18 05:48 Dose: 5,000 unit Nicardipine HCl 25 mg/ (Dextrose) 250 mls @ 25 mls/hr IVPB TITR [facility]; Protocol Last Admin: 04/30/18 10:30 Dose: 2.5 mg/hr, 25 mls/hr Insulin Aspart (Novolog Vial Sliding Scale -) 1 vial SQ ACHS [facility]; Protocol Last Admin: 04/30/18 11:58 Dose: 4 units Metoprolol Succinate (Toprol Xl -) 50 mg PO DAILY [facility] Last Admin: 04/30/18 09:39 Dose: Not Given Mupirocin (Bactroban Ointment (For Decolonization) -) 1 applic NS BID MARTINA Stop: 05/05/18 09:59 Last Admin: 04/30/18 09:38 Dose: 1 applic ASSESSMENT AND PLAN: Hypertensive Urgency Acute on likely Chronic Renal Failure Hep C Substance Abuse - increase clonidine - start procardia - continue metoprolol - taper off cardene gtt - echocardiogram - renal ultrasound - DVT prophylaxis - can monitor on floor once off cardene gtt
--- NOTE | 2018-04-30 13:18 | PN ---
Teaching Attending Note Name of Resident: Shyla Posada ATTENDING PHYSICIAN STATEMENT I saw and evaluated the patient. I reviewed the resident's note and discussed the case with the resident. I agree with the resident's findings and plan as documented. SUBJECTIVE:asymptomatic. claims she is compliant with medications only missed yesterdays dose due to leg pain which she states she forgot to take them. states she been on a stable dose of BP and DM meds and claims compliance. Was recently detoxed off heroin and BZD from 04/22-04/28 and came up here to go to [facility] for inpatient rehab. states her BP ranged from 140-160 during her stay there. denies CP, SOB, fever, chills, N/V/c/D, blurred vision or palpitations OBJECTIVE: Last Vital Signs Temp Pulse Resp BP Pulse Ox 98.3 F 64 14 150/82 98 04/30/18 10:00 04/30/18 12:00 04/30/18 12:00 04/30/18 12:00 04/30/18 09:00 General NAD. resting tremor of the head HEENT EOMI, pupils normal size CV S1 S2 RRR no murmur/rub/gallop Lungs CTA B/L no wheezing/rales/rhonchi Abdomen NT/ND ASSESSMENT AND PLAN: 52yo F wtih PMH remote polysubstance abuse, DM, HTN, CKD and HCV never been treated presented to the ER with elevated BP 1. HTN urgency- BP been very labile. on nicardipine ggt. will need further adjustment with BP as appears to be uncontrolled even when taking her medications. started on procardia. will titrate up medications to optimize goal. echo pending 2. ANITHA vs CKD- possible worsening renal function in setting of HTN urgency. has known kidney disorder as she been told in the past that she would posisble need HD soon if her renal function does not improve. renal u/s pending. avoid nephrotoxic agents. unable to obtain baseline as she does not have a doctor or clinic that she regularly goes to. can not recall any names of any clinics shes been to in the past 3. Remote Polysubstance depdendence- COWS 0. no signs of withdrawal. +BZD on utox however was recently on detox. desires to go to inpatient rehab when medically optimized. will place detox consult. emotional support. denies IVDA 4. DM- A1c 7.5. resume home regimen. counselled on risks assoc with uncontrolled DM nad HTN. verbalized understanding. 5. DVT ppx- Hep sq The care of this patient involved high complexity decision making to prevent further life threatening deterioration of the patient's condition and/or to evaluate & treat vital organ system(s) failure or risk of failure. 40 minutes
[2018-04-30] MEDS ORDERED: PT OWN MED DRAWER 7, Y5N ONE (14:32)
[2018-04-30] MEDS: cloNIDine HCL 0.1 MG TABLET PO SCH ×3 (14:40→21:49)
--- NOTE | 2018-04-30 15:34 | ECHO ---
Name: UCHE PINA Exam:Adult Echocardiogram Study Date: 04/30/2018 12:55 PM Age: 52 yrs Reason For Study: HTN Height: 63 in Weight: 138 lb BSA: 1.7 m2 MMode/2D Measurements & Calculations IVSd: 0.90 cm Ao root diam: 2.2 cm LVIDd: 4.5 cm LA dimension: 3.2 cm LVIDs: 2.6 cm LVPWd: 0.97 cm EDV(Teich): 92.1 ml LAV (MOD-bp): 51.0 ml ESV(Teich): 25.5 ml Doppler Measurements & Calculations MV E max easton: 61.6 cm/sec TR max easton: 247.7 cm/sec MV A max easton: 96.0 cm/sec TR max P.6 mmHg MV E/A: 0.64 MV dec time: 0.17 sec Med Peak E' Easton: 6.3 cm/sec PI Vmax: 82.8 cm/sec Med E/e': 9.8 Lat Peak E' Easton: 6.5 cm/sec Lat E/e': 9.4 Procedure A complete two-dimensional transthoracic echocardiogram was performed (2D, M-mode, Doppler and color flow Doppler). Left Ventricle The left ventricular size, thickness and function are normal. The left ventricular ejection fraction is normal. Ejection Fraction = 65-70%. The left ventricular wall motion is normal. Right Ventricle The right ventricle is normal in size and function. Atria Normal left and right atrial size and function. Mitral Valve There is no mitral regurgitation noted. Tricuspid Valve There is trace tricuspid regurgitation. Right ventricular systolic pressure is normal. Aortic Valve No hemodynamically significant valvular aortic stenosis. No aortic regurgitation is present. Pulmonic Valve There is no pulmonic valvular regurgitation. Great Vessels The aortic root is normal size. Pericardium/Pleura There is no pericardial effusion. Interpretation Summary The left ventricular size, thickness and function are normal. The right ventricle is normal in size and function. There is trace tricuspid regurgitation. MD Reynaldo Carmona 04/30/2018 03:34 PM
[2018-04-30] MEDS: NIFEdipine E.R 60 MG TABLET (UD) PO SCH (16:27)
--- NOTE | 2018-04-30 19:15 | PN ---
Physical Exam: SUBJECTIVE: Patient seen and examined at bedside this morning. Patient c/o right leg pain that started yesterday. Patient reports to be complaint with medications. Two days ago, she was discharged at a rehab facility for detox after 1 week. She was then referred to [facility] for inpatient rehab. Otherwise , patient denies chest pain, SOB, palpitations, fever, chills, N/V, diarrhea, constipation, visual changes. OBJECTIVE: Vital Signs Period Temp Pulse Resp BP Sys/Lofton Pulse Ox Last 24 Hr 97.7 F-98.3 F 54-80 14-63 150-259/52-96 97-100 GENERAL: The patient is awake, alert, and fully oriented, in no acute distress, resting tremor of the head. HEAD: Normal with no signs of trauma. EYES: PERRLA, EOMI, sclera anicteric, conjunctiva clear. ENT: Ears normal, nares patent, oropharynx clear without exudates, moist mucous membranes. NECK: Trachea midline, full range of motion, supple. LUNGS: Breath sounds equal, clear to auscultation bilaterally. HEART: Regular rate and rhythm, S1, S2 without murmur, rub or gallop. ABDOMEN: Soft, nontender, nondistended, normoactive bowel sounds. EXTREMITIES: 2+ pulses, warm, well-perfused, no edema. NEUROLOGICAL: Cranial nerves II through XII grossly intact. Normal speech, gait not observed. PSYCH: Normal mood, normal affect. SKIN: Warm, dry, normal turgor, no rashes or lesions noted Laboratory Results - last 24 hr 04/29/18 04/29/18 04/30/18 23:57 23:57 04:55 WBC 5.4 RBC 3.19 L Hgb 9.8 L Hct 29.7 L MCV 92.9 MCH 30.6 MCHC 32.9 RDW 15.0 Plt Count 170 MPV 9.8 Absolute Neuts (auto) 3.2 Neutrophils % 59.8 Lymphocytes % 29.5 Monocytes % 8.3 Eosinophils % 2.0 Basophils % 0.4 Nucleated RBC % 0 Sodium 142 Potassium 4.4 Chloride 107 Carbon Dioxide 29 Anion Gap 6 L BUN 63 H Creatinine 3.3 H Creat Clearance w eGFR 14.80 POC Glucometer Random Glucose 135 H Hemoglobin A1c % Serum Osmolality Calcium 9.1 Phosphorus Magnesium Total Bilirubin 0.3 AST 43 H ALT 43 Alkaline Phosphatase 114 Troponin I Total Protein 7.0 Albumin 3.3 L Triglycerides Cholesterol Total LDL Cholesterol HDL Cholesterol Urine Color Straw Urine Appearance Clear Urine pH 7.0 Ur Specific Otho 1.008 Urine Protein 2+ H Urine Glucose (UA) Negative Urine Ketones Negative Urine Blood Negative Urine Nitrite Negative Urine Bilirubin Negative Urine Urobilinogen Negative Ur Leukocyte Esterase Trace Urine WBC (Auto) 3 Urine RBC (Auto) <1 Ur Epithelial Cells Rare Urine Bacteria Rare Granular Casts 1 Urine Osmolality Ur Random Sodium Urine Creatinine Opiates Screen Methadone Screen Barbiturate Screen Phencyclidine Screen Ur Amphetamines Screen MDMA (Ecstasy) Screen Benzodiazepines Screen Cocaine Screen U Marijuana (THC) Screen 04/30/18 04/30/18 04/30/18 04:55 04:55 04:55 WBC RBC Hgb Hct MCV MCH MCHC RDW Plt Count MPV Absolute Neuts (auto) Neutrophils % Lymphocytes % Monocytes % Eosinophils % Basophils % Nucleated RBC % Sodium Potassium Chloride Carbon Dioxide Anion Gap BUN Creatinine Creat Clearance w eGFR POC Glucometer Random Glucose Hemoglobin A1c % Serum Osmolality Calcium Phosphorus Magnesium Total Bilirubin AST ALT Alkaline Phosphatase Troponin I < 0.02 Total Protein Albumin Triglycerides Cholesterol Total LDL Cholesterol HDL Cholesterol Urine Color Urine Appearance Urine pH Ur Specific Otho Urine Protein 93 H Urine Glucose (UA) Urine Ketones Urine Blood Urine Nitrite Urine Bilirubin Urine Urobilinogen Ur Leukocyte Esterase Urine WBC (Auto) Urine RBC (Auto) Ur Epithelial Cells Urine Bacteria Granular Casts Urine Osmolality Ur Random Sodium 88 Urine Creatinine 31.5 Opiates Screen Negative Methadone Screen Negative Barbiturate Screen Negative Phencyclidine Screen Negative Ur Amphetamines Screen Negative MDMA (Ecstasy) Screen Negative Benzodiazepines Screen Positive A* Cocaine Screen Negative U Marijuana (THC) Screen Negative 04/30/18 04/30/18 04/30/18 05:07 05:45 07:40 WBC 5.0 RBC 3.37 L Hgb 10.5 L Hct 31.4 L MCV 93.1 MCH 31.1 MCHC 33.4 RDW 14.8 Plt Count 166 MPV 9.5 Absolute Neuts (auto) 3.2 Neutrophils % 63.9 Lymphocytes % 26.6 Monocytes % 7.0 Eosinophils % 2.1 Basophils % 0.4 Nucleated RBC % 0 Sodium Potassium Chloride Carbon Dioxide Anion Gap BUN Creatinine Creat Clearance w eGFR POC Glucometer [phone] Random Glucose Hemoglobin A1c % Serum Osmolality Calcium Phosphorus Magnesium Total Bilirubin AST ALT Alkaline Phosphatase Troponin I Total Protein Albumin Triglycerides Cholesterol Total LDL Cholesterol HDL Cholesterol Urine Color Urine Appearance Urine pH Ur Specific Otho Urine Protein Urine Glucose (UA) Urine Ketones Urine Blood Urine Nitrite Urine Bilirubin Urine Urobilinogen Ur Leukocyte Esterase Urine WBC (Auto) Urine RBC (Auto) Ur Epithelial Cells Urine Bacteria Granular Casts Urine Osmolality 329 Ur Random Sodium Urine Creatinine Opiates Screen Methadone Screen Barbiturate Screen Phencyclidine Screen Ur Amphetamines Screen MDMA (Ecstasy) Screen Benzodiazepines Screen Cocaine Screen U Marijuana (THC) Screen 04/30/18 04/30/18 04/30/18 07:40 07:40 07:40 WBC RBC Hgb Hct MCV MCH MCHC RDW Plt Count MPV Absolute Neuts (auto) Neutrophils % Lymphocytes % Monocytes % Eosinophils % Basophils % Nucleated RBC % Sodium 145 Potassium 4.0 Chloride 110 H Carbon Dioxide 27 Anion Gap 8 BUN 55 H Creatinine 3.1 H Creat Clearance w eGFR 15.90 POC Glucometer Random Glucose 78 Hemoglobin A1c % 7.5 H Serum Osmolality 316 H Calcium 9.5 Phosphorus 3.7 Magnesium 2.2 Total Bilirubin 0.3 AST 42 H ALT 44 Alkaline Phosphatase 113 Troponin I Total Protein 7.0 Albumin 3.3 L Triglycerides 131 Cholesterol 212 H Total LDL Cholesterol 116 H HDL Cholesterol 78 H Urine Color Urine Appearance Urine pH Ur Specific Otho Urine Protein Urine Glucose (UA) Urine Ketones Urine Blood Urine Nitrite Urine Bilirubin Urine Urobilinogen Ur Leukocyte Esterase Urine WBC (Auto) Urine RBC (Auto) Ur Epithelial Cells Urine Bacteria Granular Casts Urine Osmolality Ur Random Sodium Urine Creatinine Opiates Screen Methadone Screen Barbiturate Screen Phencyclidine Screen Ur Amphetamines Screen MDMA (Ecstasy) Screen Benzodiazepines Screen Cocaine Screen U Marijuana (THC) Screen 04/30/18 04/30/18 04/30/18 07:40 11:49 16:37 WBC RBC Hgb Hct MCV MCH MCHC RDW Plt Count MPV Absolute Neuts (auto) Neutrophils % Lymphocytes % Monocytes % Eosinophils % Basophils % Nucleated RBC % Sodium Potassium Chloride Carbon Dioxide Anion Gap BUN Creatinine Creat Clearance w eGFR POC Glucometer [phone] Random Glucose Hemoglobin A1c % Serum Osmolality Calcium Phosphorus Magnesium Total Bilirubin AST ALT Alkaline Phosphatase Troponin I Total Protein Albumin Triglycerides Cancelled Cholesterol Cancelled Total LDL Cholesterol Cancelled HDL Cholesterol Cancelled Urine Color Urine Appearance Urine pH Ur Specific Otho Urine Protein Urine Glucose (UA) Urine Ketones Urine Blood Urine Nitrite Urine Bilirubin Urine Urobilinogen Ur Leukocyte Esterase Urine WBC (Auto) Urine RBC (Auto) Ur Epithelial Cells Urine Bacteria Granular Casts Urine Osmolality Ur Random Sodium Urine Creatinine Opiates Screen Methadone Screen Barbiturate Screen Phencyclidine Screen Ur Amphetamines Screen MDMA (Ecstasy) Screen Benzodiazepines Screen Cocaine Screen U Marijuana (THC) Screen Active Medications Generic Name Dose Route Start Last Admin Trade Name Freq PRN Reason Stop Dose Admin Chlorhexidine Gluconate 1 applic 04/30/18 22:00 Hibiclens For Decolonization - TP HS MARTINA Clonidine 0.1 mg 04/30/18 13:45 04/30/18 16:27 Catapres - PO Not Given TID MARTINA Heparin Sodium (Porcine) 5,000 unit 04/30/18 06:00 04/30/18 14:40 Heparin - SQ 5,000 unit TID MARTINA Administration Nicardipine HCl 25 mg/ 250 mls @ 25 mls/hr 04/30/18 10:30 04/30/18 15:00 Dextrose IVPB 1.25 mg/hr TITR MARTINA 12.5 mls/hr Titration Protocol 2.5 MG/HR Insulin Aspart 1 vial 04/30/18 07:00 04/30/18 16:39 Novolog Vial Sliding Scale - SQ 2 units ACHS MARTINA Administration Protocol Mupirocin 1 applic 04/30/18 10:00 04/30/18 09:38 Bactroban Ointment (For Decolonization) - NS 05/05/18 09:59 1 applic BID MARTINA Administration Nifedipine 60 mg 04/30/18 14:00 04/30/18 16:27 Procardia Xl - PO 60 mg DAILY MARTINA Administration Imaging CXR - 2 views the chest reveal clear lungs, normal mediastinum and sharp angles. The bones and soft tissues are intact. In the lateral view, there may be some scarring or atelectasis projected over the cardiac base. CT head w/o contrast - No evidence of acute intracranial hemorrhage, edema, midline shift, mass effect, or skull fracture. No CT evidence of acute territorial ischemic changes. Renal US - Mildly atrophic and severely echogenic kidneys suggestive of chronic medical renal disease. ASSESSMENT/PLAN: Patient is a 52 y/o female with PMH of HTN, DM, Hep C, pancreatitis, polysubstance abuse who presents to the ED after being sent from [facility] where she was found to have an elevated BP of 200/100, now found to be slightly more lethargic than originally on presentation; max BP was 269/ 96. #Hypertensive Emergency -patient currently on a nicardipine drip for BP control. -CT head w/o contrast - No evidence of acute intracranial hemorrhage, edema, midline shift, mass effect, or skull fracture. No CT evidence of acute territorial ischemic changes. -Trop <0.02 -neuro checks if necessary -c/w home meds clonidine 0.1, toprol XL 50 -Will monitor BP #CKD: BUN 63, Cr 3.3 -Pt reports that she has been told to have "low kidney function" 1 year ago. -Renal US - Mildly atrophic and severely echogenic kidneys suggestive of chronic medical renal disease. -Urine electrolytes wnl -monitor BUN/Cr -avoid nephrotoxic drugs -monitor I's and O's #Polysubstance abuse -COWS 0, no signs of withdrawal -Urine toxicology - positive BZD -Pt was given Methadone during rehab last week -Pt desires to go to [facility] upon discharge. #DM -patient reports compliance with home medications -resume home regimen -A1c 7.5 -BGM ACHS -started patient on ISS #FEN -not on any standing fluids -electrolytes wnl, routine bmp monitoring -diabetic/sodium controlled diet #Prophylaxis -Heparin 5000 units sq tid #Disposition -admit to ICU Visit type - Emergency Visit Emergency Visit: Yes ED Registration Date: 04/30/18 Care time: The patient presented to the Emergency Department on the above date and was hospitalized for further evaluation of their emergent condition. - New Patient This patient is new to me today: Yes Date on this admission: 04/30/18 - Critical Care Critical Care patient: No
[2018-04-30] MEDS ORDERED: ACETAMINOPHEN 325 MG TABLET (FP) PO PRN (21:36)
[2018-04-30] MEDS ORDERED: ACETAMINOPHEN 325 MG TABLET (FP) ONE (21:39)
[2018-04-30] MEDS ORDERED: CHLORHEXIDINE GLUCONATE 4% CLEANSER FOR DECOLONIZATION TP SCH (22:00)
[2018-05-01 06:08] LABS: HEMATOCRIT 33.9 % (32.4-45.2); MCHC 32.5 g/dl (32.0-36.0); MEAN CELL VOLUME 92.4 fl (80-96); MEAN PLT VOLUME 9.8 fl (7.5-11.1); PLATELET COUNT 184 K/MM3 (134-434); RBC 3.67 M/mm3 (3.60-5.2); RDW 14.2 % (11.6-15.6)
[2018-05-01] MEDS: INSULIN SLIDING SCALE (NOVOLOG) 1 VIAL SQ SCH ×4 (06:10→22:11)
[2018-05-01 06:32] LABS: ALBUMIN 3.1 g/dl (3.4-5.0); ALK PHOS 118 U/L (45-117); ANION GAP 6 MMOL/L (8-16); BILIRUBIN,TOTAL 0.3 mg/dL (0.2-1); BLOOD UREA NITROGEN 61 mg/dL (7-18); CALCIUM 8.6 mg/dL (8.5-10.1); CHLORIDE 103 mmol/L (98-107); CO2 28 mmol/L (21-32); CREATININE 3.5 mg/dL (0.55-1.3); GLUCOSE,RANDOM 137 mg/dL (74-106); MAGNESIUM 2.2 mg/dL (1.8-2.4); PHOSPHOROUS 5.4 mg/dL (2.5-4.9); POTASSIUM 4.5 mmol/L (3.5-5.1); SGOT/AST 43 U/L (15-37); SGPT/ALT 45 U/L (13-61); SODIUM 137 mmol/L (136-145); TOT PROT 7.1 g/dl (6.4-8.2)
[2018-05-01] MEDS: HEPARIN NA (PORCINE) 5,000 UNITS/ML 1ML VIAL SQ SCH ×3 (06:48→21:26)
[2018-05-01] MEDS: cloNIDine HCL 0.1 MG TABLET PO SCH ×3 (06:48→21:27)
[2018-05-01] MEDS ORDERED: ALBUTEROL SO4 0.083% IH SOL 2.5 MG/3 ML VIAL.NEB. NEB ONE (07:28)
[2018-05-01] MEDS ORDERED: CALCIUM ACETATE 667 MG CAPSULE (FP) PO ONE (08:00)
[2018-05-01] MEDS: NIFEdipine E.R 60 MG TABLET (UD) PO SCH (09:06)
[2018-05-01] MEDS: MUPIROCIN 2% TOPICAL OINTMENT FOR DECOLONIZATION NS SCH (09:07)
[2018-05-01] MEDS ORDERED: NICOTINE 21 MG/24 HOURS TOPICAL PATCH TD SCH ×2 (09:22→10:00)
--- NOTE | 2018-05-01 09:32 | PN ---
Physical Exam: SUBJECTIVE: Patient seen and examined this AM. No acute events overnight, although BP still elevated this AM with systolic up to 150-170s. Pt asymptomatic , denies chest pain, SOB, vision changes, head pain, nausea/vomiting. She has been passing urine without difficulty and tolerating PO intake. She did request a nicotine patch for withdrawal; pt states she smokes 1ppd. OBJECTIVE: Vital Signs Period Temp Pulse Resp BP Sys/Lofton Pulse Ox Last 24 Hr 97.8 F-98.4 F 57-69 14-63 104-207/51-93 98 GENERAL: The patient is awake, alert, and fully oriented, in no acute distress. HEAD: Normal with no signs of trauma. EYES: PERRL, extraocular movements intact, sclera anicteric, conjunctiva clear. No ptosis. Fundoscopic exam: showed dilation of vessels, no obvious hemorrhage. Difficult to visualize without dilation. Could not visualize optic disc. ENT: Ears normal, nares patent, oropharynx clear without exudates, moist mucous membranes. NECK: Trachea midline, full range of motion, supple. LUNGS: Breath sounds equal, clear to auscultation bilaterally, no wheezes, no crackles, no accessory muscle use. HEART: Regular rate and rhythm, S1, S2 without murmur, rub or gallop. ABDOMEN: Soft, nontender, nondistended, normoactive bowel sounds, no guarding, no rebound, no hepatosplenomegaly, no masses. EXTREMITIES: 2+ pulses, warm, well-perfused, no edema. NEUROLOGICAL: Pt has b/l hand tremor and head tremor, which she states is baseline for her. Cranial nerves II through XII grossly intact. Slow speech, gait normal. PSYCH: Normal mood, normal affect, pt very cooperative with exam and questioning. SKIN: Warm, dry, normal turgor, no rashes or lesions noted. Laboratory Results - last 24 hr 04/30/18 04/30/18 04/30/18 05:07 07:40 11:49 WBC RBC Hgb Hct MCV MCH MCHC RDW Plt Count MPV Sodium Potassium Chloride Carbon Dioxide Anion Gap BUN Creatinine Creat Clearance w eGFR POC Glucometer [phone] Random Glucose Serum Osmolality 316 H Calcium Phosphorus Magnesium Total Bilirubin AST ALT Alkaline Phosphatase Total Protein Albumin Urine Osmolality 329 04/30/18 04/30/18 05/01/18 16:37 21:32 05:30 WBC 7.0 RBC 3.67 Hgb 11.0 Hct 33.9 MCV 92.4 MCH 30.0 MCHC 32.5 RDW 14.2 Plt Count 184 MPV 9.8 Sodium Potassium Chloride Carbon Dioxide Anion Gap BUN Creatinine Creat Clearance w eGFR POC Glucometer [phone] Random Glucose Serum Osmolality Calcium Phosphorus Magnesium Total Bilirubin AST ALT Alkaline Phosphatase Total Protein Albumin Urine Osmolality 05/01/18 05:30 WBC RBC Hgb Hct MCV MCH MCHC RDW Plt Count MPV Sodium 137 Potassium 4.5 Chloride 103 Carbon Dioxide 28 Anion Gap 6 L BUN 61 H Creatinine 3.5 H Creat Clearance w eGFR 13.83 POC Glucometer Random Glucose 137 H Serum Osmolality Calcium 8.6 Phosphorus 5.4 H Magnesium 2.2 Total Bilirubin 0.3 AST 43 H ALT 45 Alkaline Phosphatase 118 H Total Protein 7.1 Albumin 3.1 L Urine Osmolality Active Medications Generic Name Dose Route Start Last Admin Trade Name Freq PRN Reason Stop Dose Admin Acetaminophen 650 mg 04/30/18 21:36 04/30/18 21:49 Tylenol - PO 650 mg Q6H PRN Administration PAIN Chlorhexidine Gluconate 1 applic 04/30/18 22:00 04/30/18 21:45 Hibiclens For Decolonization - TP 1 applic HS MARTINA Administration Clonidine 0.1 mg 04/30/18 13:45 05/01/18 06:48 Catapres - PO 0.1 mg TID MARTINA Administration Heparin Sodium (Porcine) 5,000 unit 04/30/18 06:00 05/01/18 06:48 Heparin - SQ 5,000 unit TID MARTINA Administration Nicardipine HCl 25 mg/ 250 mls @ 25 mls/hr 04/30/18 10:30 04/30/18 18:45 Dextrose IVPB 0 mg/hr TITR MARTINA 0 mls/hr Titration Protocol 2.5 MG/HR Insulin Aspart 1 vial 04/30/18 07:00 05/01/18 06:10 Novolog Vial Sliding Scale - SQ Not Given ACHS MARTINA Protocol Mupirocin 1 applic 04/30/18 10:00 05/01/18 09:07 Bactroban Ointment (For Decolonization) - NS 05/05/18 09:59 1 applic BID MARTINA Administration Nicotine 21 mg 09/21/18 09:22 Nicoderm Patch - TD DAILY MARTINA Nifedipine 60 mg 04/30/18 14:00 05/01/18 09:06 Procardia Xl - PO 60 mg DAILY MARTINA Administration ASSESSMENT/PLAN: 52 yo F with PMH of HTN, Hep C, pancreatitis, DM, polystubstance abuse (heroin - snorts 7-10 bags/day, xanax, percocet, alcohol three 16 ounce beers/day; states last use for any substance was 1 week ago). Pt presented to the ER from [facility] for elevated BP. In ICU for hypertensive emergency vs urgency. 1. Neuro -Polysubstance Abuse Pt states she is feeling no withdrawal symptoms at this point, continue to monitor Providing nicotine patch -Pt states she has had vision difficulty seeing up close for the past year; last dilated eye exam was 2 years ago -Head CT negative 2. Cardio -Hypertensive Emergency vs Urgency Pt has elevated Cr but unknown baseline. No other signs of organ damage noted (trop <.02, no ECG changes) BP in ER was 259/96, has improved since admission to ~150s-170s. Goal is to keep systolic BP ~150. Pt was given Clonidine 0.1 mg PO in ER with no effect on BP and was started on nicardipine drip at 2.5 mg/hr and BP came down to 140/104. Nicardipine drip stopped; continue Clonidine .1 mg TID PO, Procardia XL 60 mg PO -Echo 04/30: ventricular function normal, EF 65-70%; trace tricuspid regurgitation 3. Renal -Possible ANITHA on CKD No baseline Cr in chart and pt does not know if she has kidney disease. She says she has been told by a doctor she had "kidney problems," but never saw a sales and service officer. Today BUN/Cr 61/3.5 Will hold off on fluids for now with HTN Renal U/S: b/l echogenicity with chronic medical renal ds 4. Endocrine IDDM: ISS, BGMs; Primary team adding 5 units Lantus HS 5. DVT ppx Heparin 5000 units sq q8h, SCDs 6. 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 - New Patient This patient is new to me today: No - Critical Care Critical Care patient: Yes Total Critical Care Time (in minutes): 40 Critical Care Statement: The care of this patient involved high complexity decision making to prevent further life threatening deterioration of the patient 's condition and/or to evaluate & treat vital organ system(s) failure or risk of failure. - Discharge Referral Referred to [facility] Med [facility].: Yes
[2018-05-01] MEDS ORDERED: NIFEdipine E.R 60 MG TABLET (UD) PO SCH (10:00)
[2018-05-01] MEDS: NICARDIPINE 25 MG in DEXTROSE 5%-WATER - 240 ML IVPB SCH (11:01)
--- NOTE | 2018-05-01 12:22 | PN ---
Teaching Attending Note Name of Resident: Gloria Kee ATTENDING PHYSICIAN STATEMENT I saw and evaluated the patient. I reviewed the resident's note and discussed the case with the resident. I agree with the resident's findings and plan as documented. SUBJECTIVE: Patient seen and examined in the ICU. Currently off cardene drip. Reported severe abdominal pain overnight that coincided with hypotension. Cardene drip was stopped. BP now elevated to 169/84. Denies CP or SOB. Appears somewhat tremulous. OBJECTIVE: Intake & Output 04/28/18 04/29/18 04/30/18 05/01/18 23:59 23:59 23:59 23:59 Intake Total 620 200 Output Total 500 Balance 120 200 Weight 143 lb 138 lb 6 oz Last Vital Signs Temp Pulse Resp BP Pulse Ox 97.8 F 63 14 180/83 98 05/01/18 06:00 05/01/18 08:00 05/01/18 08:00 05/01/18 08:00 04/30/18 21:00 Active Medications Acetaminophen (Tylenol -) 650 mg PO Q6H PRN PRN Reason: PAIN Last Admin: 04/30/18 21:49 Dose: 650 mg Chlorhexidine Gluconate (Hibiclens For Decolonization -) 1 applic TP HS [facility] Last Admin: 04/30/18 21:45 Dose: 1 applic Clonidine (Catapres -) 0.1 mg PO TID [facility] Last Admin: 05/01/18 06:48 Dose: 0.1 mg Heparin Sodium (Porcine) (Heparin -) 5,000 unit SQ TID [facility] Last Admin: 05/01/18 06:48 Dose: 5,000 unit Nicardipine HCl 25 mg/ (Dextrose) 250 mls @ 25 mls/hr IVPB TITR MARTINA; Protocol Last Admin: 05/01/18 11:01 Dose: Not Given Insulin Aspart (Novolog Vial Sliding Scale -) 1 vial SQ ACHS [facility]; Protocol Last Admin: 05/01/18 11:00 Dose: 6 units Mupirocin (Bactroban Ointment (For Decolonization) -) 1 applic NS BID [facility] Stop: 05/05/18 09:59 Last Admin: 05/01/18 09:07 Dose: 1 applic Nicotine (Nicoderm Patch -) 21 mg TD DAILY [facility] Last Admin: 05/01/18 10:02 Dose: 21 mg Nifedipine (Procardia Xl -) 60 mg PO DAILY MARTINA Last Admin: 05/01/18 09:06 Dose: 60 mg Gen: Awake and alert, NAD at rest, somewhat tremulous Heart: RRR Lung: decreased breath sounds at the bases Abd: soft, nontender Ext: no edema ASSESSMENT AND PLAN: Hypertensive Urgency Acute on likely Chronic Renal Failure Hep C Substance Abuse - Titrate BP Meds - Avoid precipitous drops in BP - Follow renal function - DVT prophylaxis - Monitor for signs of withdrawal - Continued BP monitoring Q4h for 24hours Dr Manriquez
[2018-05-01 12:27] VITALS: BMI 24.4
--- NOTE | 2018-05-01 13:43 | PN ---
Teaching Attending Note Name of Resident: Shyla Posada ATTENDING PHYSICIAN STATEMENT I saw and evaluated the patient. I reviewed the resident's note and discussed the case with the resident. I agree with the resident's findings and plan as documented. SUBJECTIVE:asymptomatic. denies CP, SOB, fever, chills, IQBAL, or blurred vision OBJECTIVE: Last Vital Signs Temp Pulse Resp BP Pulse Ox 97.8 F 62 14 123/67 98 05/01/18 12:00 05/01/18 12:00 05/01/18 12:00 05/01/18 12:00 05/01/18 09:00 General NAD. resting tremor of the head CV S1 S2 RRR no murmur/rub/gallop Lungs CTA B/L no wheezing/rales/rhonchi ASSESSMENT AND PLAN: 52yo F wtih PMH remote polysubstance abuse, DM, HTN, CKD and HCV never been treated presented to the ER with elevated BP 1. HTN urgency-off ggt for 24H. BP been very labile. clonidine titrate up to TID. will increase procardia if remains elevated. no WMA seen on echo 2. ANITHA vs CKD- possible worsening renal function in setting of HTN urgency. has known kidney disorder as she been told in the past that she would possible need HD soon if her renal function does not improve. renal u/s showing atrophic kidneys. Cr likely at baseline. will need close f/u with nephrology as outpatient. wants to return to [place] when discharged. 3. Remote Polysubstance depdendence- COWS 0. no signs of withdrawal. desires to go to inpatient rehab when medically optimized. will place detox consult. emotional support. denies IVDA 4. DM- A1c 7.5. not requiring much insulin coverage. re-start lantus 5 units HS. iss and BGM. slowly titrate as needed. 5. DVT ppx- Hep sq 6. stable for transfer to tele The care of this patient involved high complexity decision making to prevent further life threatening deterioration of the patient's condition and/or to evaluate & treat vital organ system(s) failure or risk of failure. 36 minutes
--- NOTE | 2018-05-01 17:55 | PN ---
Physical Exam: SUBJECTIVE: Patient seen and examined at bedside this morning. No acute events overnight. Problem has no new complaints. BP overnight has been stable, but was elevated this morning at 180/118. OBJECTIVE: Vital Signs Period Temp Pulse Resp BP Sys/Lofton Pulse Ox Last 24 Hr 97.6 F-98.4 F 57-69 14-18 104-180/51-93 98-98 GENERAL: The patient is awake, alert, and fully oriented, in no acute distress, resting tremor of the head. HEAD: Normal with no signs of trauma. EYES: PERRLA, EOMI, sclera anicteric, conjunctiva clear. ENT: Ears normal, nares patent, oropharynx clear without exudates, moist mucous membranes. NECK: Trachea midline, full range of motion, supple. LUNGS: Breath sounds equal, clear to auscultation bilaterally. HEART: Regular rate and rhythm, S1, S2 without murmur, rub or gallop. ABDOMEN: Soft, nontender, nondistended, normoactive bowel sounds. EXTREMITIES: 2+ pulses, warm, well-perfused, no edema. NEUROLOGICAL: Cranial nerves II through XII grossly intact. Normal speech, gait not observed. PSYCH: Normal mood, normal affect. SKIN: Warm, dry, normal turgor, no rashes or lesions noted Laboratory Results - last 24 hr 04/30/18 05/01/18 05/01/18 21:32 05:30 05:30 WBC 7.0 RBC 3.67 Hgb 11.0 Hct 33.9 MCV 92.4 MCH 30.0 MCHC 32.5 RDW 14.2 Plt Count 184 MPV 9.8 Sodium 137 Potassium 4.5 Chloride 103 Carbon Dioxide 28 Anion Gap 6 L BUN 61 H Creatinine 3.5 H Creat Clearance w eGFR 13.83 POC Glucometer [phone] Random Glucose 137 H Calcium 8.6 Phosphorus 5.4 H Magnesium 2.2 Total Bilirubin 0.3 AST 43 H ALT 45 Alkaline Phosphatase 118 H Total Protein 7.1 Albumin 3.1 L 05/01/18 05/01/18 05/01/18 05:43 10:11 16:17 WBC RBC Hgb Hct MCV MCH MCHC RDW Plt Count MPV Sodium Potassium Chloride Carbon Dioxide Anion Gap BUN Creatinine Creat Clearance w eGFR POC Glucometer [phone] 189 Random Glucose Calcium Phosphorus Magnesium Total Bilirubin AST ALT Alkaline Phosphatase Total Protein Albumin Active Medications Generic Name Dose Route Start Last Admin Trade Name Rita PRN Reason Stop Dose Admin Acetaminophen 650 mg 05/01/18 13:03 Tylenol - PO Q6H PRN PAIN Clonidine 0.1 mg 05/01/18 14:00 05/01/18 13:50 Catapres - PO 0.1 mg TID MARTINA Administration Heparin Sodium (Porcine) 5,000 unit 05/01/18 14:00 05/01/18 13:50 Heparin - SQ 5,000 unit TID MARTINA Administration Insulin Aspart 1 vial 05/01/18 16:30 05/01/18 17:07 Novolog Vial Sliding Scale - SQ 2 unit ACHS MARTINA Administration Protocol Insulin Detemir 5 units 05/01/18 22:00 Levemir Vial SQ HS MARTINA Nicotine 21 mg 05/02/18 10:00 Nicoderm Patch - TD DAILY MARTIAN Nifedipine 60 mg 05/02/18 10:00 Procardia Xl - PO DAILY MARTINA Imaging CXR - 2 views the chest reveal clear lungs, normal mediastinum and sharp angles. The bones and soft tissues are intact. In the lateral view, there may be some scarring or atelectasis projected over the cardiac base. CT head w/o contrast - No evidence of acute intracranial hemorrhage, edema, midline shift, mass effect, or skull fracture. No CT evidence of acute territorial ischemic changes. Renal US - Mildly atrophic and severely echogenic kidneys suggestive of chronic medical renal disease. ASSESSMENT/PLAN: Patient is a 52 y/o female with PMH of HTN, DM, Hep C, pancreatitis, polysubstance abuse who presents to the ED after being sent from [facility] where she was found to have an elevated BP of 200/100, now found to be slightly more lethargic than originally on presentation; max BP was 269/ 96. #Hypertensive Urgency -BP overnight was stable. But this morning was elevated at 180s/90s -Trop <0.02 -Echo - normal LV/RV size and function, trace TR -Increased clonidine 0.1 g TID -Continue toprol XL 50mg -All day, patient's BP has been stable off nicardipine ggt. -Transferred to Tele. -Will monitor BP. #CKD: BUN 61, Cr 3.5 -Pt reports that she has been told to have "low kidney function" 1 year ago. -Renal US - Mildly atrophic and severely echogenic kidneys suggestive of chronic medical renal disease. -Urine electrolytes wnl -monitor BUN/Cr -avoid nephrotoxic drugs -monitor I's and O's #Polysubstance abuse -COWS 0, no signs of withdrawal -Urine toxicology - positive BZD -Pt was given Methadone during rehab last week -Pt desires to go to [facility] upon discharge. #DM -patient reports compliance with home medications -Levemir 5 units sq HS -A1c 7.5 -BGM ACHS -on ISS #FEN -not on any standing fluids -electrolytes wnl, routine bmp monitoring -diabetic/sodium controlled diet #Prophylaxis -Heparin 5000 units sq tid #Disposition -transfer to Telemetry -Pt desires to go to [facility] upon discharge. Visit type - Emergency Visit Emergency Visit: Yes ED Registration Date: 04/30/18 Care time: The patient presented to the Emergency Department on the above date and was hospitalized for further evaluation of their emergent condition. - New Patient This patient is new to me today: Yes Date on this admission: 05/01/18 - Critical Care Critical Care patient: No
[2018-05-01] MEDS ORDERED: INSULIN (NOVOLOG) ASPART 100 UNITS/ML 10ML VIAL ONE (21:19)
[2018-05-01] MEDS: INSULIN (LEVEMIR) 100 UNITS/ML UNITS SQ SCH (21:27)
[2018-05-02] MEDS ORDERED: NIFEdipine E.R. 30 MG TABLET (FP) PO ONE (01:28)
[2018-05-02] MEDS ORDERED: INSULIN (NOVOLOG) ASPART 100 UNITS/ML 10ML VIAL ONE ×2 (06:36→20:59)
[2018-05-02] MEDS: cloNIDine HCL 0.1 MG TABLET PO SCH ×3 (06:37→21:05)
[2018-05-02] MEDS: INSULIN SLIDING SCALE (NOVOLOG) 1 VIAL SQ SCH ×4 (06:37→21:06)
[2018-05-02] MEDS: HEPARIN NA (PORCINE) 5,000 UNITS/ML 1ML VIAL SQ SCH ×3 (06:37→21:05)
[2018-05-02 07:29] LABS: HEMATOCRIT 34.6 % (32.4-45.2); HEMOGLOBIN 11.2 GM/dL (10.7-15.3); MCH 29.9 pg (25.7-33.7); MCHC 32.5 g/dl (32.0-36.0); MEAN PLT VOLUME 9.5 fl (7.5-11.1); PLATELET COUNT 199 K/MM3 (134-434); RBC 3.76 M/mm3 (3.60-5.2); RDW 14.5 % (11.6-15.6); WHITE BLOOD COUNT 7.2 K/mm3 (4.0-10.0)
[2018-05-02 08:10] LABS: ALBUMIN 3.2 g/dl (3.4-5.0); ALK PHOS 119 U/L (45-117); ANION GAP 8 MMOL/L (8-16); BILIRUBIN,TOTAL 0.3 mg/dL (0.2-1); BLOOD UREA NITROGEN 65 mg/dL (7-18); CALCIUM 8.8 mg/dL (8.5-10.1); CHLORIDE 103 mmol/L (98-107); CO2 27 mmol/L (21-32); CREATININE 3.7 mg/dL (0.55-1.3); GLUCOSE,RANDOM 168 mg/dL (74-106); MAGNESIUM 2.3 mg/dL (1.8-2.4); PHOSPHOROUS 5.6 mg/dL (2.5-4.9); POTASSIUM 4.8 mmol/L (3.5-5.1); SGOT/AST 54 U/L (15-37); SGPT/ALT 54 U/L (13-61); SODIUM 138 mmol/L (136-145); TOT PROT 7.2 g/dl (6.4-8.2)
[2018-05-02] MEDS: NIFEdipine E.R 60 MG TABLET (UD) PO SCH (09:08)
[2018-05-02] MEDS: NICOTINE 21 MG/24 HOURS TOPICAL PATCH TD SCH (09:08)
[2018-05-02] MEDS ORDERED: NIFEdipine E.R. 30 MG TABLET (FP) PO SCH (10:00)
--- NOTE | 2018-05-02 12:57 | PN ---
Progress Note (short form) - Note Progress Note: asymptomatic. denies Cp, SOB, fever, chills, N/V/C/D Current Medications Generic Name Dose Route Start Last Admin Trade Name Rita PRN Reason Stop Dose Admin Acetaminophen 650 mg 05/01/18 13:03 Tylenol - PO Q6H PRN PAIN Clonidine 0.1 mg 05/01/18 14:00 05/02/18 06:37 Catapres - PO 0.1 mg TID MARTINA Administration Heparin Sodium (Porcine) 5,000 unit 05/01/18 14:00 05/02/18 06:37 Heparin - SQ 5,000 unit TID MARTINA Administration Insulin Aspart 1 vial 05/01/18 16:30 05/02/18 11:48 Novolog Vial Sliding Scale - SQ 10 unit ACHS MARTINA Administration Protocol Insulin Detemir 5 units 05/01/18 22:00 05/01/18 21:27 Levemir Vial SQ 5 units HS MARTINA Administration Nicotine 21 mg 05/02/18 10:00 05/02/18 09:08 Nicoderm Patch - TD 21 mg DAILY MARTINA Administration Nifedipine 60 mg 05/02/18 10:00 05/02/18 09:08 Procardia Xl - PO 60 mg DAILY MARTINA Administration Last Vital Signs Temp Pulse Resp BP Pulse Ox 98.2 F 70 18 149/73 97 05/02/18 10:00 05/02/18 10:00 05/02/18 10:00 05/02/18 10:00 05/02/18 09:00 eneral NAD. resting tremor of the head CV S1 S2 RRR no murmur/rub/gallop Lungs CTA B/L no wheezing/rales/rhonchi CBCD WBC 7.2 K/mm3 (4.0-10.0) 05/02/18 06:00 RBC 3.76 M/mm3 (3.60-5.2) 05/02/18 06:00 Hgb 11.2 GM/dL (10.7-15.3) 05/02/18 06:00 Hct 34.6 % (32.4-45.2) 05/02/18 06:00 MCV 92.0 fl (80-96) 05/02/18 06:00 MCHC 32.5 g/dl (32.0-36.0) 05/02/18 06:00 RDW 14.5 % (11.6-15.6) 05/02/18 06:00 Plt Count 199 K/MM3 (134-434) 05/02/18 06:00 MPV 9.5 fl (7.5-11.1) 05/02/18 06:00 CMP Sodium 138 mmol/L (136-145) 05/02/18 06:00 Potassium 4.8 mmol/L (3.5-5.1) 05/02/18 06:00 Chloride 103 mmol/L (98-107) 05/02/18 06:00 Carbon Dioxide 27 mmol/L (21-32) 05/02/18 06:00 Anion Gap 8 MMOL/L (8-16) 05/02/18 06:00 BUN 65 mg/dL (7-18) H 05/02/18 06:00 Creatinine 3.7 mg/dL (0.55-1.3) H 05/02/18 06:00 Creat Clearance w eGFR 12.97 (>60) 05/02/18 06:00 Calcium 8.8 mg/dL (8.5-10.1) 05/02/18 06:00 Total Bilirubin 0.3 mg/dL (0.2-1) 05/02/18 06:00 AST 54 U/L (15-37) H 05/02/18 06:00 ALT 54 U/L (13-61) 05/02/18 06:00 Alkaline Phosphatase 119 U/L (45-117) H 05/02/18 06:00 Total Protein 7.2 g/dl (6.4-8.2) 05/02/18 06:00 Albumin 3.2 g/dl (3.4-5.0) L 05/02/18 06:00 ASSESSMENT AND PLAN: 52yo F wtih PMH remote polysubstance abuse, DM, HTN, CKD and HCV never been treated presented to the ER with elevated BP 1. HTN urgency-improved but remains above goal. cont medications at present time. titrate as needed to optimize BP. 2. ANITHA vs CKD- possible worsening renal function in setting of HTN urgency. has known kidney disorder as she been told in the past that she would possible need HD soon if her renal function does not improve. renal u/s showing atrophic kidneys. Cr likely at baseline. will need close f/u with nephrology as outpatient. wants to return to [place] when discharged. 3. Remote Polysubstance depdendence- COWS 0. no signs of withdrawal. desires to go to inpatient rehab when medically optimized. will place detox consult. emotional support. denies IVDA 4. DM- A1c 7.5. not requiring much insulin coverage. re-start lantus 5 units HS. iss and BGM. slowly titrate as needed. 5. DVT ppx- Hep sq Visit type - Emergency Visit Emergency Visit: Yes ED Registration Date: 04/30/18 Care time: The patient presented to the Emergency Department on the above date and was hospitalized for further evaluation of their emergent condition. - New Patient This patient is new to me today: No - Critical Care Critical Care patient: No - Discharge Referral Referred to [facility] Med P.C.: No
[2018-05-02] MEDS: INSULIN (LEVEMIR) 100 UNITS/ML UNITS SQ SCH (21:05)
[2018-05-02] MEDS: ACETAMINOPHEN 325 MG TABLET (FP) PO PRN (21:07)
[2018-05-03] MEDS: cloNIDine HCL 0.1 MG TABLET PO SCH ×3 (05:05→22:10)
[2018-05-03] MEDS: HEPARIN NA (PORCINE) 5,000 UNITS/ML 1ML VIAL SQ SCH ×3 (05:05→22:09)
[2018-05-03] MEDS: INSULIN SLIDING SCALE (NOVOLOG) 1 VIAL SQ SCH ×4 (07:04→22:11)
[2018-05-03 08:58] LABS: ANION GAP 7 MMOL/L (8-16); BLOOD UREA NITROGEN 70 mg/dL (7-18); CALCIUM 8.7 mg/dL (8.5-10.1); CHLORIDE 106 mmol/L (98-107); CO2 26 mmol/L (21-32); CREATININE 3.7 mg/dL (0.55-1.3); GLUCOSE,RANDOM 124 mg/dL (74-106); POTASSIUM 4.3 mmol/L (3.5-5.1); SODIUM 139 mmol/L (136-145)
[2018-05-03] MEDS: NICOTINE 21 MG/24 HOURS TOPICAL PATCH TD SCH (10:18)
[2018-05-03] MEDS: NIFEdipine E.R 60 MG TABLET (UD) PO SCH (10:18)
[2018-05-03] MEDS ORDERED: NIFEdipine E.R. 30 MG TABLET (FP) PO ONE (10:43)
--- NOTE | 2018-05-03 10:48 | PN ---
Teaching Attending Note Name of Resident: Shyla Posada ATTENDING PHYSICIAN STATEMENT I saw and evaluated the patient. I reviewed the resident's note and discussed the case with the resident. I agree with the resident's findings and plan as documented. SUBJECTIVE:asymptomatic. denies Cp, SOB, fever, chills, N/V/C/D OBJECTIVE: Last Vital Signs Temp Pulse Resp BP Pulse Ox 98.3 F 58 L 18 158/85 96 05/03/18 09:01 05/03/18 09:01 05/03/18 09:01 05/03/18 09:01 05/03/18 09:01 General NAD ASSESSMENT AND PLAN: 52yo F wtih PMH remote polysubstance abuse, DM, HTN, CKD and HCV never been treated presented to the ER with elevated BP 1. HTN urgency-improved but remains above goal. increase procardia to 90mg. concern with adherence to medication regimen however she claims she is compliant. titrate as needed to optimize BP. 2. ANITHA vs CKD- possible worsening renal function in setting of HTN urgency. has known kidney disorder as she been told in the past that she would possible need HD soon if her renal function does not improve. renal u/s showing atrophic kidneys. Cr likely at baseline. will need close f/u with nephrology as outpatient. wants to return to [place] when discharged. 3. Remote Polysubstance depdendence- COWS 0. no signs of withdrawal. desires to go to inpatient rehab when medically optimized. will place detox consult. emotional support. denies IVDA 4. DM- A1c 7.5. not requiring much insulin coverage. cont lantus, iss and BGM. slowly titrate as needed. 5. DVT ppx- Hep sq 6. patient is medically improved however is high risk for re-admission or severe and permanent health consequences if discharged. [facility] unable to accept beds today for inpatient rehab. Concern for patient as she is homeless and typically lives on the streets in [place]. Her sister helps her get her medications and will medication adjustments concern pt will not have access to medications and not be compliant. will monitor the patient overnight and send to [facility] in the morning so patient can receive the rehab and emotional support she needs in order to remain sober.
[2018-05-03] MEDS: ACETAMINOPHEN 325 MG TABLET (FP) PO PRN (18:30)
--- NOTE | 2018-05-03 18:46 | PN ---
Physical Exam: SUBJECTIVE: Patient seen and examined at bedside this morning. No acute events overnight. Patient was noted to have elevated blood pressure at night, with good control during the day. Otherwise, she has no new complaints. OBJECTIVE: Vital Signs Period Temp Pulse Resp BP Sys/Lofton Pulse Ox Last 24 Hr 97.9 F-98.3 F 58-76 18-20 126-177/70-92 96-96 GENERAL: The patient is awake, alert, and fully oriented, in no acute distress, resting tremor of the head. HEAD: Normal with no signs of trauma. EYES: PERRLA, EOMI, sclera anicteric, conjunctiva clear. ENT: Ears normal, nares patent, oropharynx clear without exudates, moist mucous membranes. NECK: Trachea midline, full range of motion, supple. LUNGS: Breath sounds equal, clear to auscultation bilaterally. HEART: Regular rate and rhythm, S1, S2 without murmur, rub or gallop. ABDOMEN: Soft, nontender, nondistended, normoactive bowel sounds. EXTREMITIES: 2+ pulses, warm, well-perfused, no edema. NEUROLOGICAL: Cranial nerves II through XII grossly intact. Normal speech, gait not observed. PSYCH: Normal mood, normal affect. SKIN: Warm, dry, normal turgor, no rashes or lesions noted Laboratory Results - last 24 hr 05/02/18 05/03/18 05/03/18 21:04 05:04 07:50 Sodium 139 Potassium 4.3 Chloride 106 Carbon Dioxide 26 Anion Gap 7 L BUN 70 H Creatinine 3.7 H Creat Clearance w eGFR 12.97 POC Glucometer 174 198 Random Glucose 124 H Calcium 8.7 05/03/18 05/03/18 11:15 16:45 Sodium Potassium Chloride Carbon Dioxide Anion Gap BUN Creatinine Creat Clearance w eGFR POC Glucometer 330 165 Random Glucose Calcium Active Medications Generic Name Dose Route Start Last Admin Trade Name Freq PRN Reason Stop Dose Admin Acetaminophen 650 mg 05/01/18 13:03 05/03/18 18:30 Tylenol - PO 650 mg Q6H PRN Administration PAIN Clonidine 0.1 mg 05/01/18 14:00 05/03/18 13:03 Catapres - PO 0.1 mg TID MARTINA Administration Heparin Sodium (Porcine) 5,000 unit 05/01/18 14:00 05/03/18 13:03 Heparin - SQ 5,000 unit TID MARTINA Administration Insulin Aspart 1 vial 05/01/18 16:30 05/03/18 16:47 Novolog Vial Sliding Scale - SQ 2 unit ACHS MARTINA Administration Protocol Insulin Detemir 5 units 05/01/18 22:00 05/02/18 21:05 Levemir Vial SQ 5 units HS MARTINA Administration Nicotine 21 mg 05/02/18 10:00 05/03/18 10:18 Nicoderm Patch - TD 21 mg DAILY MARTINA Administration Nifedipine 60 mg 05/02/18 10:00 05/03/18 10:18 Procardia Xl - PO 60 mg DAILY MARTINA Administration Imaging CXR - 2 views the chest reveal clear lungs, normal mediastinum and sharp angles. The bones and soft tissues are intact. In the lateral view, there may be some scarring or atelectasis projected over the cardiac base. CT head w/o contrast - No evidence of acute intracranial hemorrhage, edema, midline shift, mass effect, or skull fracture. No CT evidence of acute territorial ischemic changes. Renal US - Mildly atrophic and severely echogenic kidneys suggestive of chronic medical renal disease. ASSESSMENT/PLAN: Patient is a 52 y/o female with PMH of HTN, DM, Hep C, pancreatitis, polysubstance abuse who presents to the ED after being sent from [facility] where she was found to have an elevated BP of 200/100, now found to be slightly more lethargic than originally on presentation; max BP was 269/ 96. #Hypertensive Urgency -BP 130s/70s during the day, higher BP at night (highest 177/92) -Trop <0.02 -Echo - normal LV/RV size and function, trace TR -Clonidine 0.1 g TID -Patient noted to have bradycardia -Toprol discontinued. -Procardia 60mg daily started. Increase dose to 90mg. -Patient's BP has been stable off nicardipine ggt. -Will monitor BP. #CKD: BUN 70, Cr 3.7 -Pt reports that she has been told to have "low kidney function" 1 year ago. -Renal US - Mildly atrophic and severely echogenic kidneys suggestive of chronic medical renal disease. -Urine electrolytes wnl -monitor BUN/Cr -avoid nephrotoxic drugs -monitor I's and O's -Nephrology follow up as outpatient. #Polysubstance abuse -COWS 0, no signs of withdrawal -Urine toxicology - positive BZD -Pt was given Methadone during rehab last week -Pt desires to go to [facility] upon discharge. #DM -patient reports compliance with home medications -Levemir 5 units sq HS -A1c 7.5 -BGM ACHS -on ISS #FEN -not on any standing fluids -electrolytes wnl, routine bmp monitoring -diabetic/sodium controlled diet #Prophylaxis -Heparin 5000 units sq tid #Disposition -transfer to Telemetry -Pt desires to go to [facility] upon discharge. Visit type - Emergency Visit Emergency Visit: Yes ED Registration Date: 04/30/18 Care time: The patient presented to the Emergency Department on the above date and was hospitalized for further evaluation of their emergent condition. - New Patient This patient is new to me today: Yes Date on this admission: 05/03/18 - Critical Care Critical Care patient: No
[2018-05-03] MEDS: INSULIN (LEVEMIR) 100 UNITS/ML UNITS SQ SCH (22:10)
[2018-05-04] MEDS: cloNIDine HCL 0.1 MG TABLET PO SCH ×2 (06:23→13:23)
[2018-05-04] MEDS: HEPARIN NA (PORCINE) 5,000 UNITS/ML 1ML VIAL SQ SCH ×2 (06:23→13:23)
[2018-05-04] MEDS: INSULIN SLIDING SCALE (NOVOLOG) 1 VIAL SQ SCH ×2 (06:23→11:30)
[2018-05-04 07:22] LABS: ANION GAP 9 MMOL/L (8-16); BLOOD UREA NITROGEN 69 mg/dL (7-18); CHLORIDE 106 mmol/L (98-107); CO2 23 mmol/L (21-32); CREATININE 3.5 mg/dL (0.55-1.3); GLUCOSE,RANDOM 118 mg/dL (74-106); POTASSIUM 4.5 mmol/L (3.5-5.1); SODIUM 138 mmol/L (136-145)
[2018-05-04] MEDS: ACETAMINOPHEN 325 MG TABLET (FP) PO PRN (09:06)
[2018-05-04] MEDS: NICOTINE 21 MG/24 HOURS TOPICAL PATCH TD SCH (09:09)
[2018-05-04] MEDS ORDERED: INSULIN (LEVEMIR) 100 UNITS/ML UNITS SQ ONE (09:45)
[2018-05-04] MEDS ORDERED: NIFEdipine E.R. 90 MG TABLET (FP) PO SCH (10:00)
--- NOTE | 2018-05-04 11:44 | PN ---
Teaching Attending Note Name of Resident: Shyla Posada ATTENDING PHYSICIAN STATEMENT I saw and evaluated the patient. I reviewed the resident's note and discussed the case with the resident. I agree with the resident's findings and plan as documented. SUBJECTIVE:asymptomatic. eager to go to [facility] today. denies Cp, SOB, fever, chills, N/V/C/D OBJECTIVE: Last Vital Signs Temp Pulse Resp BP Pulse Ox 98.2 F 65 18 157/90 96 05/04/18 05:50 05/04/18 05:50 05/04/18 05:50 05/04/18 05:50 05/03/18 21:00 General NAD ASSESSMENT AND PLAN: 52yo F wtih PMH remote polysubstance abuse, DM, HTN, CKD and HCV never been treated presented to the ER with elevated BP 1. HTN urgency-improved with less fluctuations however reported elevated BP this AM SBP 180's. will give AM meds and recheck later today. consider starting a 3rd agent. 2. ANITHA vs CKD- possible worsening renal function in setting of HTN urgency. has known kidney disorder as she been told in the past that she would possible need HD soon if her renal function does not improve. renal u/s showing atrophic kidneys. Cr likely at baseline. will need close f/u with nephrology as outpatient. wants to return to [place] when discharged. 3. Remote Polysubstance depdendence- COWS 0. no signs of withdrawal. desires to go to inpatient rehab when medically optimized. will place detox consult. emotional support. denies IVDA 4. DM- A1c 7.5. will start levemir 5 units this AM to make BID which pt was doing BID dosing in the past. titrate as needed. 5. DVT ppx- Hep sq 6. will monitor BP till this afternoon. if remains stable can d/c to [facility]. stressed to patient about compliance and follow up. pt is optimisitic about her future
[2018-05-04 13:12] VITALS: TEMP 98.1
[2018-05-04 13:15] VITALS: BP 148/77; PULSE 76
--- NOTE | 2018-05-04 16:00 | DS ---
Physical Exam: SUBJECTIVE: Patient seen and examined at bedside. No acute events overnight. She has no new complaints. OBJECTIVE: Vital Signs Period Temp Pulse Resp BP Sys/Lofton Pulse Ox Last 24 Hr 97.9 F-98.2 F 59-76 16-18 101-200/68-111 96-96 PHYSICAL EXAM GENERAL: The patient is awake, alert, and fully oriented, in no acute distress, resting tremor of the head. HEAD: Normal with no signs of trauma. EYES: PERRLA, EOMI, sclera anicteric, conjunctiva clear. ENT: Ears normal, nares patent, oropharynx clear without exudates, moist mucous membranes. NECK: Trachea midline, full range of motion, supple. LUNGS: Breath sounds equal, clear to auscultation bilaterally. HEART: Regular rate and rhythm, S1, S2 without murmur, rub or gallop. ABDOMEN: Soft, nontender, nondistended, normoactive bowel sounds. EXTREMITIES: 2+ pulses, warm, well-perfused, no edema. NEUROLOGICAL: Cranial nerves II through XII grossly intact. Normal speech, gait not observed. PSYCH: Normal mood, normal affect. SKIN: Warm, dry, normal turgor, no rashes or lesions noted ons noted. LABS Laboratory Results - last 24 hr 05/03/18 05/03/18 05/04/18 16:45 21:58 05:53 Sodium Potassium Chloride Carbon Dioxide Anion Gap BUN Creatinine Creat Clearance w eGFR POC Glucometer 165 270 129 Random Glucose Calcium 05/04/18 05/04/18 06:00 11:54 Sodium 138 Potassium 4.5 Chloride 106 Carbon Dioxide 23 Anion Gap 9 BUN 69 H Creatinine 3.5 H Creat Clearance w eGFR 13.83 POC Glucometer 338 Random Glucose 118 H Calcium 9.0 Imaging CXR - 2 views the chest reveal clear lungs, normal mediastinum and sharp angles. The bones and soft tissues are intact. In the lateral view, there may be some scarring or atelectasis projected over the cardiac base. CT head w/o contrast - No evidence of acute intracranial hemorrhage, edema, midline shift, mass effect, or skull fracture. No CT evidence of acute territorial ischemic changes. Renal US - Mildly atrophic and severely echogenic kidneys suggestive of chronic medical renal disease. HOSPITAL COURSE: Date of Admission:04/30/18 Date of Discharge: 09/24/18 Patient is a 52 y/o female with PMH of HTN, DM, Hep C, pancreatitis, polysubstance abuse who presents to the ED after being sent from [facility] rehab center where she was found to have an elevated BP of 200/100, now found to be slightly more lethargic than originally on presentation; max BP was 269/ 96. Patient was admitted and was started on Nicardipine drip. Blood pressure was stabilized and nicardipine drip was discontinued. Her home medication Clonidine 0.1mg was increased to three times a day and she was started on Procardia 90mg daily. BP remained stable. Patient was also noted to have elevated BUN/Cr. Renal ultrasound done and showed mildly atrophic and severely echogenic kidneys suggestive of chronic medical renal disease. Patient was discharged to [facility] for rehab with instructions to follow-up with primary care doctor and interior decorator for further evaluation and management of CKD. Minutes to complete discharge: 40 Discharge Summary Reason For Visit: ACUTE KIDNEY INJURY/HYPERTENSIVE URGENCY Current Active Problems ANITHA (acute kidney injury) (Acute) Hypertensive urgency (Acute) IDDM (insulin dependent diabetes mellitus) (Acute) Polysubstance (including opioids) dependence w/o physiol dependence (Acute) Condition: Improved - Instructions Diet, Activity, Other Instructions: You were admitted because you were found to have very high blood pressure. You were given medications through IV that helped bring down your blood pressure. Your home medication, Clonidine, was also increased to three times a day. You will be discharged to [facility] for rehab. Please take the following medications for your blood pressure as prescribed. 1. Clonidine 0.1mg three times a day. 2. Procardia 90mg once daily in the morning. Your blood sugar was noted to be controlled. Continue your Lantus at home, decrease the dose to 5 units twice a day. Continue all your other home medications. It is VERY important that you follow up with both your primary care doctor and kidney doctor as soon as you leave [facility]. IT is important that you control your sugars and blood pressure closely to prevent you from requiring dialysis like discussed. We encourage you to stop smoking, avoid alcohol and drugs. Call 911 or go to the ED if you have any worsening chest pain, palpitations, headache, fevers, chills or any new concerns noted. Disposition: TRANSFER ACUTE CARE/OTHER HOSP - Home Medications Comprehensive Discharge Medication List: Ambulatory Orders Gabapentin [Neurontin -] 300 mg PO BID 04/29/18 Multivitamins [Multivit ([facility] Formulary)] 1 tab PO DAILY 04/29/18 Omeprazole 20 mg PO DAILY 04/29/18 Acetaminophen [Tylenol .Regular Strength -] 650 mg PO Q6H PRN tablet 05/04/18 Insulin Glargine,Hum.rec.anlog [Lantus Solostar PEN -] 5 units SQ BIDAC #100 units 05/04/18 Nicotine Patch [Nicoderm Patch -] 21 mg TD DAILY patch 05/04/18 Nifedipine ER [Procardia XL -] 90 mg PO DAILY tab.er.24 05/04/18 cloNIDine HCL [Catapres -] 0.1 mg PO TID #0 tablet 05/04/18 This patient is new to me today: Yes Date on this admission: 05/05/18 Emergency Visit: Yes ED Registration Date: 04/30/18 Care time: The patient presented to the Emergency Department on the above date and was hospitalized for further evaluation of their emergent condition. Critical Care patient: No - Discharge Referral Referred to [facility] Med P.C.: No
== END 2018-05-04 17:00 | disposition short-term general hospital (02) | DRG 460 ==
LOC: JER 20:49 → JERBED 04-30 02:44 → OBSVTOIN 04-30 05:03 → JICU 04-30 05:24 → J4S 05-01 13:17
PROVIDERS: ADMIT Internal Medicine; ATTEND Internal Medicine
DX: N17.9 Acute kidney failure, unspecified (principal); I16.0 Hypertensive urgency; F17.210 Nicotine dependence, cigarettes, uncomplicated; F10.10 Alcohol abuse, uncomplicated; E11.65 Type 2 diabetes mellitus with hyperglycemia; E11.40 Type 2 diabetes mellitus with diabetic neuropathy, unspecified; F19.20 Other psychoactive substance dependence, uncomplicated; B19.20 Unspecified viral hepatitis C without hepatic coma; F13.251 Sedative, hypnotic or anxiolytic dependence with sedative, hypnotic or anxiolytic-induced psychotic disorder with hallucinations; I12.9 Hypertensive chronic kidney disease with stage 1 through stage 4 chronic kidney disease, or unspecified chronic kidney disease; E11.22 Type 2 diabetes mellitus with diabetic chronic kidney disease; N18.9 Chronic kidney disease, unspecified; R00.1 Bradycardia, unspecified; F11.20 Opioid dependence, uncomplicated; Z79.4 Long term (current) use of insulin; Z59.0 Homelessness
CPT/HCPCS: 36415; 70450-TC; 71046-TC-FY; 76775-TC; 80048; 80053; 80061; 80307; 81003; 81015; 82570; 82962; 83036; 83721; 83735; 83930; 83935; 84100; 84156; 84300; 84484; 85025; 85027; 93005; 93010; 93306-TC; 97116-GP; 97161-GP; 99283-25; G0378; J0735; J1644; J7030

== ENCOUNTER 2018-05-04 17:20 | Inpatient (IN) | payer OTHER ==
[2018-05-04 20:13] VITALS: BMI 23.9
--- NOTE | 2018-05-04 21:38 | HP ---
Admission ROS [facility] Chief Complaint: Seeking admission to Rehab Allergies/Adverse Reactions: Allergies Allergy/AdvReac Type Severity Reaction Status Date / Time No Known Allergies Allergy Verified 05/04/18 20:59 History of Present Illness: 52 years old female with heroin and benzodiazepine dependence is seeking admission to Rehab. Patient reports that she was discharged from today where she was admitted in Intensive care unit for hypertensive crisis. She has medical history of DM type 1 on Insulin, HTN, Pancreatitis, Hep. C, depression and anxiety. Patient denies suicidal ideation at this time - Ebola screening Have you traveled outside of the country in the last 21 days: No (N) Have you had contact with anyone from an Ebola affected area: No Have you been sick,other than usual withdrawal symptoms: No Do you have a fever: No - Review of Systems Constitutional: Chills, Loss of Appetite, Malaise, Night Sweats, Changes in sleep EENT: reports: No Symptoms Reported, Sinus Pressure Respiratory: reports: No Symptoms reported Cardiac: reports: No Symptoms Reported GI: reports: No Symptoms Reported, Poor Appetite, Poor Fluid Intake, Abdominal cramping Musculoskeletal: reports: No Symptoms Reported Integumentary: reports: Dryness Neuro: reports: Tremors Hematology: reports: No Symptoms Reported Psychiatric: reports: Orientated x3, Agitated, Anxious, Depressed Other Systems: Reviewed and Negative Patient History - Patient Medical History Hx Anemia: No Hx Asthma: No Hx Chronic Obstructive Pulmonary Disease (COPD): No Hx Cancer: No Hx Cardiac Disorders: No Hx Congestive Heart Failure: No Hx Hypertension: Yes (Clonidine) Hx Hypercholesterolemia: No Hx Pacemaker: No HX Cerebrovascular Accident: No Hx Seizures: No Hx Diabetes: Yes (Lantus) Hx Gastrointestinal Disorders: Yes (Pancreatitis) Hx Liver Disease: Yes (Hep C) Hx Genitourinary Disorders: No Hx Sexually Transmitted Disorders: No Hx Renal Disease (ESRD): No Hx Thyroid Disease: No Hx Human Immunodeficiency Virus (HIV): No (Negative 2017) Hx Hepatitis C: Yes (Not treated ) Hx Depression: Yes (Not on medication) Hx Suicide Attempt: No (Denies suicidal ideation at this time) Hx Bipolar Disorder: No Hx Schizophrenia: No Other Medical History: Anxiety - Not on medication - Patient Surgical History Past Surgical History: No - PPD History Previous Implant?: No Documented Results: Negative w/proof Implanted On Prior [facility] Admission?: No PPD to be Administered?: Yes - Reproductive History Patient is a Female of Child Bearing Age (11 -55 yrs old): Yes Last Menstrual Period: 04/11/13 LMP comment: Menopausal Patient : No - Smoking Cessation Smoking history: Current every day smoker Have you smoked in the past 12 months: Yes Aproximately how many cigarettes per day: 20 Hx Chewing Tobacco Use: No Initiated information on smoking cessation: Yes 'Breaking Loose' booklet given: 05/04/18 - Substance & Tx. History Hx Alcohol Use: No Hx Substance Use: Yes Hx [facility] Family Disease History - Family Disease History Family History: Denies Admission Physical Exam [facility] - Vital Signs Vital Signs: Vital Signs - 24 hr 05/04/18 20:05 Temperature 97.7 F Pulse Rate 80 Respiratory 18 Rate Blood Pressure 150/100 - Physical General Appearance: Yes: Within Normal Limits HEENTM: Yes: Within Normal Limits Respiratory: Yes: Within Normal Limits Neck: Yes: Supple Breast: Yes: Breast Exam Deferred Cardiology: Yes: Within Normal Limits Abdominal: Yes: Within Normal Limits Genitourinary: Yes: Within Normal Limits Back: Yes: Normal Inspection Musculoskeletal: Yes: Within Normal Limits Extremities: Yes: Normal Inspection Neurological: Yes: editing clerk II-XII NML intact, Alert, Motor Strength 5/5 Integumentary: Yes: Within Normal Limits Lymphatic: Yes: Within Normal Limits - Diagnostic (1) Hepatitis C Current Visit: Yes Status: Chronic (2) DM type 1 (diabetes mellitus, type 1) Current Visit: Yes Status: Chronic (3) HTN (hypertension) Current Visit: Yes Status: Chronic (4) Anxiety Current Visit: Yes Status: Acute (5) Pancreatitis Current Visit: Yes Status: Chronic Qualifiers: Acute pancreatitis complication: unspecified (6) Nicotine dependence Current Visit: Yes Status: Chronic (7) Heroin dependence Current Visit: Yes Status: Chronic (8) Benzodiazepine dependence Current Visit: Yes Status: Chronic Cleared for Admission [facility] - Detox or Rehab [facility] Level of Care: Observation Bed Claeared for Rehab Admission: Yes [facility] Breath Alcohol Content Breath Alcohol Content: 0 Urine Pregancy Test - Result Urine Test Results: Negative- NO Line Present Urine Drug Screen - Results Urine Drug Screen Results: BZO-Benzodiazepines Inpatient Rehab Admission - Initial Determination Are CD services needed?: Yes Free of communicable disease: Yes Not in need of hospitalization: Yes - Rehab Admission Criteria Previous failed treatment: Yes Poor recovery environment: Yes Comorbidities: Yes Lacks judgement: No Patient is meeting Inpatient Rehab admission criteria:: Yes
[2018-05-05] MEDS: cloNIDine HCL 0.1 MG TABLET PO SCH ×3 (06:15→21:08)
[2018-05-05] MEDS: INSULIN (LEVEMIR) 100 UNITS/ML UNITS SQ SCH ×2 (07:59→17:01)
[2018-05-05] MEDS ORDERED: PT OWN MED DRAWER 7, Y5N ONE (08:54)
[2018-05-05] MEDS: GABAPENTIN 300 MG CAPSULE (FP) PO SCH ×2 (10:12→21:08)
[2018-05-05] MEDS: NIFEdipine E.R. 90 MG TABLET (FP) PO SCH (10:12)
[2018-05-05] MEDS: PANTOPRAZOLE 20 MG TABLET (FP) PO SCH (10:13)
[2018-05-05] MEDS ORDERED: P-EPHED 60MG/TRIPROLIDI 2.5MG TABLET PO PRN (12:01)
[2018-05-05] MEDS ORDERED: MENTHOL/PHENOL 1 EACH UD MM PRN (12:01)
[2018-05-05] MEDS ORDERED: MAGNESIUM CITRATE 300 ML BOTTLE PO PRN (12:01)
[2018-05-05] MEDS ORDERED: guaiFENesin/D-METHORPHAN HB 10 ML UNIT-DOSE CUPS PO PRN (12:01)
[2018-05-05] MEDS ORDERED: LOPERAMIDE HCL 2 MG CAPSULE PO PRN (12:01)
[2018-05-05] MEDS ORDERED: ACETAMINOPHEN 325 MG TABLET (FP) PO PRN (12:01)
[2018-05-05] MEDS ORDERED: MAG HYDROX/AL HYDROX/SIMETH 30 ML UNIT-DOSE CUP PO PRN (12:01)
[2018-05-05] MEDS ORDERED: MAGNESIUM HYDROX 2400MG/30ML ORAL SUSPENSION 30 ML CUP PO PRN (12:01)
--- NOTE | 2018-05-05 14:08 | PN ---
S Progress Note Note: Vital Signs (72 hours) 05/04/18 05/05/18 05/05/18 20:05 00:30 03:30 Temperature 97.7 F Pulse Rate 80 Respiratory 18 18 18 Rate Blood Pressure 150/100 05/05/18 05/05/18 06:56 09:30 Temperature 97.2 F L Pulse Rate 79 80 Respiratory 18 Rate Blood Pressure 142/83 197/72 H last BP 167/93 P81 patient on clonidine 0.1 mg TID and Nidefedipine ER 90 mg qd increase PO fluids low sodium diet continue to monitor
[2018-05-05] MEDS ORDERED: INSULIN SLIDING SCALE (NOVOLOG) 1 VIAL SQ SCH (16:30)
--- NOTE | 2018-05-05 16:30 | PN ---
[facility] Progress Note Note: NURSE CALLED TO REPORT BGM OF 491 MG/DL ON THIS PATIENT. BGM BEFORE BREAKFAST TODAY WAS 188 MG/DL. PT SAID SHE WAS DRINKING REGULAR JUICE EARLIER TODAY. ALERT O X 3. NAD. REPEAT BGM WAS 464 MG /DL. PT IS ON LEVEMIR 10 MG BID PLAN:REGULAR INSULIN SLIDING SCALE DIRECTED. CONTINUE BGM ACHS CRYSTAL LIGHT BEVERAGE WITH MEALS AND SNACKS. CALL MD/SKIVER UPPERS OR LININGS IF NEEDED AND BEFORE ANY INSULIN ADMINISTRATION.
--- NOTE | 2018-05-05 16:36 | EKG ---
Test Reason : Blood Pressure : / mmHG Vent. Rate : 067 BPM Atrial Rate : 067 BPM P-R Int : 144 ms QRS Dur : 072 ms QT Int : 414 ms P-R-T Axes : 076 043 061 degrees QTc Int : 437 ms NORMAL SINUS RHYTHM NONSPECIFIC T WAVE ABNORMALITY ABNORMAL ECG WHEN COMPARED WITH ECG OF 30-APR-2018 02:24, NONSPECIFIC T WAVE ABNORMALITY NOW EVIDENT IN LATERAL LEADS Confirmed by MD Francie, Jerson ([id number]) on 05/05/2018 4:36:06 PM Referred By: Confirmed By:Jerson Marmolejo MD
[2018-05-05] MEDS: THIAMINE HCL 100 MG TABLET (FP) PO SCH (21:08)
[2018-05-05] MEDS: INSULIN SLIDING SCALE (NOVOLOG) 1 VIAL SQ SCH (21:41)
[2018-05-05] MEDS ORDERED: MELATONIN 5 MG TABLETS PO PRN (22:00)
[2018-05-06] MEDS: INSULIN SLIDING SCALE (NOVOLOG) 1 VIAL SQ SCH ×4 (06:29→21:23)
[2018-05-06] MEDS: cloNIDine HCL 0.1 MG TABLET PO SCH ×3 (06:29→21:20)
[2018-05-06] MEDS: IBUPROFEN 400 MG TABLET (FP) PO PRN (06:31)
[2018-05-06] MEDS: INSULIN (LEVEMIR) 100 UNITS/ML UNITS SQ SCH ×2 (07:39→21:20)
[2018-05-06] MEDS: GABAPENTIN 300 MG CAPSULE (FP) PO SCH ×2 (10:14→21:22)
[2018-05-06] MEDS: PANTOPRAZOLE 20 MG TABLET (FP) PO SCH (10:14)
[2018-05-06] MEDS: PRENATAL VITAMINS W/ FOLIC ACID TABLET (FP) PO SCH (10:14)
[2018-05-06] MEDS: NIFEdipine E.R. 90 MG TABLET (FP) PO SCH (10:14)
--- NOTE | 2018-05-06 11:17 | HP ---
Psychiatrist Admission - Data Date of interview: 05/06/18 Admission source: [facility] Identifying data: This is the first admission to [address] [place] [address] for this 52 years old AA single female homeless,supported by PA. Medical History: Significant for DM Type 1 ,Renal insufficiency,Hep C,HTN. Psychiatric History: First contact with psychiatrist was in residential in 1997 to address drug use,withdrawing.She was placed on Sinequan,Elavil.Patient reports being in residential system many times in residential including 6 years ([phone]).She was dx with Bipolar disorder.Patient reports periodes of agression,anger outbursts, impulsivity.She has been on different psychotropic medications but reports no good response.Denies any suicidal hitory,never been admitted to psychiatric unit.Patient sees psychiatrist at [facility]. Medications she was on:Zoloft 25 mg po daily and Clonopin 1 mg po daily.Reports no response to Zoloft (was d/c by her psychiatrist prior to this admission). Physical/Sexual Abuse/Trauma History: not willing to discuss at present Vital Signs: Vital Signs - 24 hr 05/06/18 05/06/18 05/06/18 00:30 03:30 06:52 Temperature 97.0 F L Pulse Rate 90 Respiratory 18 18 18 Rate Blood Pressure 175/96 H 05/06/18 09:35 Temperature Pulse Rate 85 Respiratory Rate Blood Pressure 178/90 H Allergies/Adverse Reactions: Allergies Allergy/AdvReac Type Severity Reaction Status Date / Time No Known Allergies Allergy Verified 05/04/18 20:59 Date of last physical exam: 05/04/18 Concur with the findings of this exam: Yes - Substance Abuse/Tx History Hx Alcohol Use: Yes (socially) Hx Substance Use: Yes (heroin since 19 yo(sniffing,IV) 10 bags daily,Xanax since 6 yo) Substance Use Type: Heroin, Tranquilizers Hx Substance Use Treatment: Yes (this is her first inpatient rehab treatment) Mental Status Exam - Mental Status Exam Alert and Oriented to: Time, Place, Person Cognitive Function: Grossly Intact Patient Appearance: Unkempt Mood: Nervous, Anxious, Apprehensive Affect: Labile Patient Behavior: Restless, Cooperative Speech Pattern: Clear, Excessive Voice Loudness: Normal Thought Process: Goal Oriented Thought Disorder: Not Present Hallucinations: Denies Suicidal Ideation: Denies Homicidal Ideation: Denies Insight/Judgement: Fair Sleep: Difficulty falling asleep Appetite: Fair Muscle strength/Tone: Mild Hypertonicity Gait/Station: Normal Psychiatric Findings - Problem List ([place] 1, 2,3) (1) Benzodiazepine dependence Current Visit: Yes Status: Chronic (2) DM type 1 (diabetes mellitus, type 1) Current Visit: Yes Status: Chronic Qualifiers: Diabetes mellitus complication status: with unspecified complications Qualified Code(s): E10.8 - Type 1 diabetes mellitus with unspecified complications (3) HTN (hypertension) Current Visit: Yes Status: Chronic (4) Hepatitis C Current Visit: Yes Status: Chronic (5) Heroin dependence Current Visit: Yes Status: Chronic (6) Nicotine dependence Current Visit: Yes Status: Chronic (7) Renal insufficiency Current Visit: Yes Status: Chronic (8) Pancreatitis Current Visit: Yes Status: Chronic Qualifiers: Acute pancreatitis complication: unspecified (9) ANITHA (acute kidney injury) Current Visit: Yes Status: Resolved (10) IDDM (insulin dependent diabetes mellitus) Current Visit: Yes Status: Chronic (11) Bipolar disorder Current Visit: Yes Status: Chronic - Initial Treatment Plan Initial Treatment Plan: Gabapentin 600 mg po bid,Lyrica 50 mg po hs.Will monitor progress.
[2018-05-06] MEDS ORDERED: INSULIN (NOVOLOG) ASPART 100 UNITS/ML 10ML VIAL ONE ×3 (11:55→21:49)
[2018-05-06] MEDS: hydrOXYzine PAMOATE 50 MG CAPSULE (FP) PO PRN (11:57)
[2018-05-06] MEDS ORDERED: COLLOIDAL OATMEAL 1 BAR EACH TP PRN (13:09)
--- NOTE | 2018-05-06 13:53 | PN ---
[facility] Progress Note Note: Vital Signs (72 hours) 05/04/18 05/05/18 05/05/18 20:05 00:30 03:30 Temperature 97.7 F Pulse Rate 80 Respiratory 18 18 18 Rate Blood Pressure 150/100 05/05/18 05/05/18 05/06/18 06:56 09:30 00:30 Temperature 97.2 F L Pulse Rate 79 80 Respiratory 18 18 Rate Blood Pressure 142/83 197/72 H 05/06/18 05/06/18 05/06/18 03:30 06:52 09:35 Temperature 97.0 F L Pulse Rate 90 85 Respiratory 18 18 Rate Blood Pressure 175/96 H 178/90 H Patient on clonidine TID and Nifedipine, continue with asymptomatic elevated BP . Add lisinopril 10 mg QD for renal protection re: patient with hx of DM. Additional labs pending. Continue to monitor. If worsening symptoms patient to be evaluated at [facility].
[2018-05-06 14:37] LABS: HEMOGLOBIN 11.6 GM/dL (10.7-15.3); MCH 30.9 pg (25.7-33.7); MCHC 33.1 g/dl (32.0-36.0); MEAN CELL VOLUME 93.3 fl (80-96); MEAN PLT VOLUME 10.3 fl (7.5-11.1); PLATELET COUNT 192 K/MM3 (134-434); RBC 3.75 M/mm3 (3.60-5.2); RDW 14.8 % (11.6-15.6); WHITE BLOOD COUNT 8.4 K/mm3 (4.0-10.0)
[2018-05-06 14:49] LABS: URINE APPEARANCE CLEAR; URINE BILIRUBIN NEGATIVE (<2.0 mg/dL); URINE COLOR LTYELLOW; URINE GLUCOSE (UA) NEGATIVE (NEGATIVE); URINE KETONE NEGATIVE (NEGATIVE); URINE NITRITE NEGATIVE (NEGATIVE); URINE UROBILINOGEN NEGATIVE mg/dL (0.2-1.0)
[2018-05-06 14:55] LABS: ALBUMIN 4.1 g/dl (3.4-5.0); ALK PHOS 121 U/L (45-117); ANION GAP 9 MMOL/L (8-16); BILIRUBIN,TOTAL 0.3 mg/dL (0.2-1); BLOOD UREA NITROGEN 63 mg/dL (7-18); CALCIUM 9.3 mg/dL (8.5-10.1); CHLORIDE 107 mmol/L (98-107); CO2 22 mmol/L (21-32); CREATININE 2.9 mg/dL (0.55-1.3); GLUCOSE,RANDOM 188 mg/dL (74-106); POTASSIUM 4.9 mmol/L (3.5-5.1); SGOT/AST 88 U/L (15-37); SGPT/ALT 113 U/L (13-61); SODIUM 139 mmol/L (136-145); TOT PROT 8.6 g/dl (6.4-8.2)
[2018-05-06 14:58] LABS: URINE PROTEIN 2+ (NEGATIVE)
[2018-05-06 14:59] LABS: EPI CELLS RARE /HPF (FEW); URINE LEUK ESTERASE 1+ (NEGATIVE)
[2018-05-06] MEDS: LISINOPRIL 10 MG TABLET (FP) PO SCH (15:33)
[2018-05-06] MEDS ORDERED: INSULIN (LEVEMIR) 100 UNITS/ML UNITS SQ ONE ×2 (16:33→21:49)
[2018-05-06] MEDS: PREGABALIN 50 MG CAPSULE PO SCH (21:20)
[2018-05-06] MEDS: THIAMINE HCL 100 MG TABLET (FP) PO SCH (21:20)
[2018-05-06] MEDS ORDERED: PT OWN MED DRAWER 7, Y5N ONE (23:59)
[2018-05-07] MEDS: cloNIDine HCL 0.1 MG TABLET PO SCH ×3 (06:16→21:18)
[2018-05-07] MEDS: IBUPROFEN 400 MG TABLET (FP) PO PRN (06:17)
[2018-05-07] MEDS: INSULIN SLIDING SCALE (NOVOLOG) 1 VIAL SQ SCH ×4 (06:40→21:22)
[2018-05-07] MEDS: INSULIN (LEVEMIR) 100 UNITS/ML UNITS SQ SCH ×2 (07:48→16:59)
[2018-05-07] MEDS ORDERED: PT OWN MED DRAWER 7, Y5N ONE (08:29)
[2018-05-07] MEDS: LISINOPRIL 10 MG TABLET (FP) PO SCH (09:57)
[2018-05-07] MEDS: GABAPENTIN 300 MG CAPSULE (FP) PO SCH ×2 (09:57→21:19)
[2018-05-07] MEDS: NIFEdipine E.R. 90 MG TABLET (FP) PO SCH (09:57)
[2018-05-07] MEDS: PANTOPRAZOLE 20 MG TABLET (FP) PO SCH (09:58)
[2018-05-07] MEDS: PRENATAL VITAMINS W/ FOLIC ACID TABLET (FP) PO SCH (09:58)
[2018-05-07 10:43] LABS: RPR REACTIVE 1:1 (NONREACTIVE)
[2018-05-07] MEDS ORDERED: INSULIN (NOVOLOG) ASPART 100 UNITS/ML 10ML VIAL ONE (11:48)
--- NOTE | 2018-05-07 13:10 | PN ---
[facility] Progress Note (SOAP) Subjective: C/o back and muscle spasms in legs. States was taking baclofen in past and it helped. States rx'd for syphilis in the past and has not had any risk factors since then. Objective: 05/07/18 13:08 Alert and oriented x3. gait steady. Continuous tremor movements of head and shoulders. Vital Signs 05/07/18 05/07/18 07:13 09:27 Temperature 98 F Pulse Rate 85 87 Respiratory 18 Rate Blood Pressure 151/73 137/80 Abnormal Lab Results 05/06/18 08:27 RPR Titer Reactive 1:1 H [facility] - Reactive Assessment: Poly-substance use disorder in remission. Hypertension. Renal disorder. (+) RPR history w/ treatment Plan: Continue rehab. Encouraged increased water intake. Start baclofen 10 mg PO TID prn.
[2018-05-07] MEDS: hydrOXYzine PAMOATE 50 MG CAPSULE (FP) PO PRN (13:59)
[2018-05-07 15:16] LABS: TREPONEMA ANTIBODY REACTIVE (NONREACTIVE)
[2018-05-07] MEDS: SIMETHICONE 80 MG TAB.CHEW (FP) PO PRN (17:51)
[2018-05-07] MEDS: PREGABALIN 50 MG CAPSULE PO SCH (19:41)
[2018-05-07] MEDS: THIAMINE HCL 100 MG TABLET (FP) PO SCH (21:18)
[2018-05-08] MEDS: cloNIDine HCL 0.1 MG TABLET PO SCH ×3 (06:28→21:30)
[2018-05-08] MEDS: BACLOFEN 10 MG TABLET (FP) PO PRN (06:28)
[2018-05-08] MEDS: INSULIN SLIDING SCALE (NOVOLOG) 1 VIAL SQ SCH ×4 (06:28→21:33)
[2018-05-08] MEDS: INSULIN (LEVEMIR) 100 UNITS/ML UNITS SQ SCH ×2 (07:41→16:56)
[2018-05-08] MEDS: GABAPENTIN 300 MG CAPSULE (FP) PO SCH ×2 (10:15→21:30)
[2018-05-08] MEDS: NIFEdipine E.R. 90 MG TABLET (FP) PO SCH (10:15)
[2018-05-08] MEDS: HYDROCORTISONE 1% TOPICAL OINT 30 GM TUBE TP PRN (10:15)
[2018-05-08] MEDS: PANTOPRAZOLE 20 MG TABLET (FP) PO SCH (10:15)
[2018-05-08] MEDS: LISINOPRIL 10 MG TABLET (FP) PO SCH (10:15)
[2018-05-08] MEDS: PRENATAL VITAMINS W/ FOLIC ACID TABLET (FP) PO SCH (10:16)
[2018-05-08] MEDS ORDERED: INSULIN (NOVOLOG) ASPART 100 UNITS/ML 10ML VIAL ONE (11:59)
[2018-05-08] MEDS: SIMETHICONE 80 MG TAB.CHEW (FP) PO PRN ×2 (12:59→21:30)
[2018-05-08] MEDS: IBUPROFEN 400 MG TABLET (FP) PO PRN (13:00)
[2018-05-08] MEDS: PREGABALIN 50 MG CAPSULE PO SCH (20:22)
[2018-05-08] MEDS: THIAMINE HCL 100 MG TABLET (FP) PO SCH (21:30)
[2018-05-09] MEDS: cloNIDine HCL 0.1 MG TABLET PO SCH ×3 (06:25→21:58)
[2018-05-09] MEDS: INSULIN SLIDING SCALE (NOVOLOG) 1 VIAL SQ SCH ×4 (06:26→21:59)
[2018-05-09] MEDS: HYDROCORTISONE 1% TOPICAL OINT 30 GM TUBE TP PRN (06:52)
[2018-05-09] MEDS ORDERED: PT OWN MED DRAWER 7, Y5N ONE (06:53)
[2018-05-09] MEDS: INSULIN (LEVEMIR) 100 UNITS/ML UNITS SQ SCH ×2 (07:56→16:45)
[2018-05-09] MEDS: GABAPENTIN 300 MG CAPSULE (FP) PO SCH ×2 (09:56→21:58)
[2018-05-09] MEDS: LISINOPRIL 10 MG TABLET (FP) PO SCH ×2 (09:56→21:58)
[2018-05-09] MEDS: NIFEdipine E.R. 90 MG TABLET (FP) PO SCH (09:56)
[2018-05-09] MEDS: PANTOPRAZOLE 20 MG TABLET (FP) PO SCH (09:56)
[2018-05-09] MEDS: PRENATAL VITAMINS W/ FOLIC ACID TABLET (FP) PO SCH (09:57)
[2018-05-09] MEDS ORDERED: INSULIN (NOVOLOG) ASPART 100 UNITS/ML 10ML VIAL ONE ×2 (12:01→22:41)
--- NOTE | 2018-05-09 15:50 | PN ---
[facility] Progress Note Note: Vital Signs (72 hours) 05/06/18 05/07/18 05/07/18 20:55 03:30 07:13 Temperature 98 F Pulse Rate 88 85 Respiratory 16 16 18 Rate Blood Pressure 159/90 151/73 05/07/18 05/07/18 05/07/18 09:27 13:28 22:29 Temperature Pulse Rate 87 82 84 Respiratory Rate Blood Pressure 137/80 149/86 148/83 05/08/18 05/08/18 05/08/18 00:30 03:30 07:26 Temperature 97.7 F Pulse Rate 80 Respiratory 18 18 16 Rate Blood Pressure 155/95 05/08/18 05/08/18 05/08/18 09:42 14:26 22:20 Temperature Pulse Rate 79 80 82 Respiratory Rate Blood Pressure 172/82 H 173/79 H 145/95 05/09/18 05/09/18 05/09/18 00:30 03:30 07:30 Temperature 99.3 F Pulse Rate 96 H Respiratory 18 17 18 Rate Blood Pressure 182/80 H 05/09/18 05/09/18 05/09/18 07:50 10:00 13:36 Temperature Pulse Rate 79 83 91 H Respiratory 18 Rate Blood Pressure 136/74 141/80 167/92 Patient with hx of chronic renal disease and polysubstanace dependence. Continues with elevated BP. increase lisino[ril from 10mg qd to 10 mg BID increase PO fluids continue to monitor
[2018-05-09] MEDS: THIAMINE HCL 100 MG TABLET (FP) PO SCH (21:56)
[2018-05-09] MEDS: PREGABALIN 50 MG CAPSULE PO SCH (21:58)
[2018-05-09] MEDS ORDERED: INSULIN (LEVEMIR) 100 UNITS/ML UNITS SQ ONE (22:41)
[2018-05-10] MEDS: cloNIDine HCL 0.1 MG TABLET PO SCH ×3 (06:12→21:33)
[2018-05-10] MEDS: BACLOFEN 10 MG TABLET (FP) PO PRN (06:13)
[2018-05-10] MEDS: INSULIN SLIDING SCALE (NOVOLOG) 1 VIAL SQ SCH ×4 (07:00→21:36)
[2018-05-10] MEDS: INSULIN (LEVEMIR) 100 UNITS/ML UNITS SQ SCH ×2 (07:58→17:03)
[2018-05-10] MEDS: PRENATAL VITAMINS W/ FOLIC ACID TABLET (FP) PO SCH (09:50)
[2018-05-10] MEDS: HYDROCORTISONE 1% TOPICAL OINT 30 GM TUBE TP PRN (09:50)
[2018-05-10] MEDS: LISINOPRIL 10 MG TABLET (FP) PO SCH ×2 (09:51→21:33)
[2018-05-10] MEDS: NIFEdipine E.R. 90 MG TABLET (FP) PO SCH (09:51)
[2018-05-10] MEDS: PANTOPRAZOLE 20 MG TABLET (FP) PO SCH (09:51)
[2018-05-10] MEDS: GABAPENTIN 300 MG CAPSULE (FP) PO SCH ×2 (09:51→21:33)
[2018-05-10] MEDS ORDERED: INSULIN (NOVOLOG) ASPART 100 UNITS/ML 10ML VIAL ONE (11:56)
[2018-05-10] MEDS: THIAMINE HCL 100 MG TABLET (FP) PO SCH (21:33)
[2018-05-10] MEDS: PREGABALIN 50 MG CAPSULE PO SCH (21:33)
[2018-05-11] MEDS: cloNIDine HCL 0.1 MG TABLET PO SCH (06:02)
[2018-05-11] MEDS: IBUPROFEN 400 MG TABLET (FP) PO PRN (06:04)
[2018-05-11 06:52] VITALS: BP 170/79; PULSE 97; TEMP 98
[2018-05-11] MEDS: INSULIN SLIDING SCALE (NOVOLOG) 1 VIAL SQ SCH (07:48)
[2018-05-11] MEDS: INSULIN (LEVEMIR) 100 UNITS/ML UNITS SQ SCH (07:48)
[2018-05-11] MEDS ORDERED: INSULIN (NOVOLOG) ASPART 100 UNITS/ML 10ML VIAL ONE (08:00)
--- NOTE | 2018-05-11 10:14 | PN ---
Psychiatric Progress Note Vital Signs: Vital Signs Period Temp Pulse Resp BP Sys/[place] Pulse Ox Last 24 Hr 98.0 F 77-97 16-18 155-170/75-79 Date of Session: 05/11/18 Chief Complaint:: Discharge visit. HPI: Opioid and Anxiolytic dependence comorbid with Bipolar disorder. ROS: Significant for Renal insufficiency,DM,HTN. Current Side Effect: No Lab tests ordered: No Lab tests reviewed: Yes Provider note:: Patient completed this program today (early discharge).She has partially met her treatment goals and will continue to address her issues on outpatient basis at [facility].Patient reports finding that Neurontin helps to cope with mood instability,anxiety.Script provided. Supported therapy provided focusing on relapse prevention.Patient identifies areas of difficulties,behaviors which contribute to relapse ,coping skills,support utilizations as well as other resourses to maintain recovery has been discussed with the patient . Patient is stable for discharge today. Total face to face time:: 30 Mental Status Exam - Mental Status Exam Alert and Oriented to: Time, Place, Person Cognitive Function: Grossly Intact Patient Appearance: Well Groomed Mood: Hopeful Affect: Mood Congruent, Labile Patient Behavior: Cooperative Speech Pattern: Clear Voice Loudness: Normal Thought Process: Goal Oriented Thought Disorder: Not Present Hallucinations: Denies Suicidal Ideation: Denies Homicidal Ideation: Denies Insight/Judgement: Fair Sleep: Fair Appetite: Good Muscle strength/Tone: Normal, Mild Hypertonicity Gait/Station: Normal (essential tremor) Psychiatric Treatment Plan - Problem List (2) DM type 1 (diabetes mellitus, type 1) Qualifiers: Diabetes mellitus complication status: with unspecified complications Qualified Code(s): E10.8 - Type 1 diabetes mellitus with unspecified complications (3) HTN (hypertension) Qualifiers: Hypertension type: unspecified Qualified Code(s): I10 - Essential (primary ) hypertension (8) Pancreatitis Qualifiers: Acute pancreatitis complication: unspecified
--- NOTE | 2018-05-11 15:25 | PN ---
[facility] Progress Note Note: PT COMPLETED REHAB. ALERT O X 3. REPORTS SHE HAS A PRIMARY MEDICAL PROVIDER DR[facility]UE [address] [place]. REPORTS SHE HAS OWN MEDS AND DOES NOT NEED RX. Vital Signs - 24 hr 05/10/18 05/11/18 05/11/18 20:40 00:30 03:30 Temperature Pulse Rate 90 Respiratory 18 18 Rate Blood Pressure 155/75 05/11/18 06:51 Temperature 98.0 F Pulse Rate 97 H Respiratory 16 Rate Blood Pressure 170/79 Laboratory Tests 05/05/18 05/05/18 05/05/18 06:14 11:55 12:23 WBC RBC Hgb Hct MCV MCH MCHC RDW Plt Count MPV Sodium Potassium Chloride Carbon Dioxide Anion Gap BUN Creatinine Creat Clearance w eGFR POC Glucometer 188 491 464 Random Glucose Calcium Total Bilirubin AST ALT Alkaline Phosphatase Total Protein Albumin Urine Color Urine Appearance Urine pH Ur Specific [place] Urine Protein Urine Glucose (UA) Urine Ketones Urine Blood Urine Nitrite Urine Bilirubin Urine Urobilinogen Ur Leukocyte Esterase Urine WBC (Auto) Urine RBC (Auto) Ur Epithelial Cells RPR Titer T.pallidum Ab ([facility]) 05/05/18 05/05/18 05/06/18 16:59 21:14 06:28 WBC RBC Hgb Hct MCV MCH MCHC RDW Plt Count MPV Sodium Potassium Chloride Carbon Dioxide Anion Gap BUN Creatinine Creat Clearance w eGFR POC Glucometer 345 322 135 Random Glucose Calcium Total Bilirubin AST ALT Alkaline Phosphatase Total Protein Albumin Urine Color Urine Appearance Urine pH Ur Specific [place] Urine Protein Urine Glucose (UA) Urine Ketones Urine Blood Urine Nitrite Urine Bilirubin Urine Urobilinogen Ur Leukocyte Esterase Urine WBC (Auto) Urine RBC (Auto) Ur Epithelial Cells RPR Titer T.pallidum Ab ([facility]) 05/06/18 05/06/18 05/06/18 08:22 08:27 08:27 WBC 8.4 RBC 3.75 Hgb 11.6 Hct 35.0 MCV 93.3 MCH 30.9 MCHC 33.1 RDW 14.8 Plt Count 192 MPV 10.3 Sodium 139 Potassium 4.9 Chloride 107 Carbon Dioxide 22 Anion Gap 9 BUN 63 H Creatinine 2.9 H Creat Clearance w eGFR 17.18 POC Glucometer Random Glucose 188 H Calcium 9.3 Total Bilirubin 0.3 AST 88 H ALT 113 H Alkaline Phosphatase 121 H Total Protein 8.6 H Albumin 4.1 Urine Color Urine Appearance Urine pH Ur Specific [place] Urine Protein Urine Glucose (UA) Urine Ketones Urine Blood Urine Nitrite Urine Bilirubin Urine Urobilinogen Ur Leukocyte Esterase Urine WBC (Auto) Urine RBC (Auto) Ur Epithelial Cells RPR Titer Reactive 1:1 H T.pallidum Ab ([facility]) Reactive 05/06/18 05/06/18 05/06/18 10:40 11:51 16:41 WBC RBC Hgb Hct MCV MCH MCHC RDW Plt Count MPV Sodium Potassium Chloride Carbon Dioxide Anion Gap BUN Creatinine Creat Clearance w eGFR POC Glucometer 338 163 Random Glucose Calcium Total Bilirubin AST ALT Alkaline Phosphatase Total Protein Albumin Urine Color Ltyellow Urine Appearance Clear Urine pH 5.0 D Ur Specific [place] 1.011 Urine Protein 2+ H Urine Glucose (UA) Negative Urine Ketones Negative Urine Blood Negative Urine Nitrite Negative Urine Bilirubin Negative Urine Urobilinogen Negative Ur Leukocyte Esterase 1+ H Urine WBC (Auto) 10 Urine RBC (Auto) 1 Ur Epithelial Cells Rare RPR Titer T.pallidum Ab ([facility]) 05/06/18 05/07/18 05/07/18 21:23 06:15 11:45 WBC RBC Hgb Hct MCV MCH MCHC RDW Plt Count MPV Sodium Potassium Chloride Carbon Dioxide Anion Gap BUN Creatinine Creat Clearance w eGFR POC Glucometer 302 174 272 Random Glucose Calcium Total Bilirubin AST ALT Alkaline Phosphatase Total Protein Albumin Urine Color Urine Appearance Urine pH Ur Specific [place] Urine Protein Urine Glucose (UA) Urine Ketones Urine Blood Urine Nitrite Urine Bilirubin Urine Urobilinogen Ur Leukocyte Esterase Urine WBC (Auto) Urine RBC (Auto) Ur Epithelial Cells RPR Titer T.pallidum Ab ([facility]) 05/07/18 05/07/18 05/08/18 16:53 21:20 06:27 WBC RBC Hgb Hct MCV MCH MCHC RDW Plt Count MPV Sodium Potassium Chloride Carbon Dioxide Anion Gap BUN Creatinine Creat Clearance w eGFR POC Glucometer 202 387 150 Random Glucose Calcium Total Bilirubin AST ALT Alkaline Phosphatase Total Protein Albumin Urine Color Urine Appearance Urine pH Ur Specific [place] Urine Protein Urine Glucose (UA) Urine Ketones Urine Blood Urine Nitrite Urine Bilirubin Urine Urobilinogen Ur Leukocyte Esterase Urine WBC (Auto) Urine RBC (Auto) Ur Epithelial Cells RPR Titer T.pallidum Ab ([facility]) 09/05/08/18 05/08/18 11:56 16:54 21:32 WBC RBC Hgb Hct MCV MCH MCHC RDW Plt Count MPV Sodium Potassium Chloride Carbon Dioxide Anion Gap BUN Creatinine Creat Clearance w eGFR POC Glucometer 286 263 211 Random Glucose Calcium Total Bilirubin AST ALT Alkaline Phosphatase Total Protein Albumin Urine Color Urine Appearance Urine pH Ur Specific [place] Urine Protein Urine Glucose (UA) Urine Ketones Urine Blood Urine Nitrite Urine Bilirubin Urine Urobilinogen Ur Leukocyte Esterase Urine WBC (Auto) Urine RBC (Auto) Ur Epithelial Cells RPR Titer T.pallidum Ab ([facility]) 05/09/18 05/09/18 05/09/18 06:24 11:58 17:04 WBC RBC Hgb Hct MCV MCH MCHC RDW Plt Count MPV Sodium Potassium Chloride Carbon Dioxide Anion Gap BUN Creatinine Creat Clearance w eGFR POC Glucometer 146 319 357 Random Glucose Calcium Total Bilirubin AST ALT Alkaline Phosphatase Total Protein Albumin Urine Color Urine Appearance Urine pH Ur Specific [place] Urine Protein Urine Glucose (UA) Urine Ketones Urine Blood Urine Nitrite Urine Bilirubin Urine Urobilinogen Ur Leukocyte Esterase Urine WBC (Auto) Urine RBC (Auto) Ur Epithelial Cells RPR Titer T.pallidum Ab ([facility]) 05/09/18 05/10/18 05/10/18 21:57 06:11 11:54 WBC RBC Hgb Hct MCV MCH MCHC RDW Plt Count MPV Sodium Potassium Chloride Carbon Dioxide Anion Gap BUN Creatinine Creat Clearance w eGFR POC Glucometer 314 91 260 Random Glucose Calcium Total Bilirubin AST ALT Alkaline Phosphatase Total Protein Albumin Urine Color Urine Appearance Urine pH Ur Specific [place] Urine Protein Urine Glucose (UA) Urine Ketones Urine Blood Urine Nitrite Urine Bilirubin Urine Urobilinogen Ur Leukocyte Esterase Urine WBC (Auto) Urine RBC (Auto) Ur Epithelial Cells RPR Titer T.pallidum Ab ([facility]) 05/10/18 05/10/18 05/11/18 17:03 21:35 06:01 WBC RBC Hgb Hct MCV MCH MCHC RDW Plt Count MPV Sodium Potassium Chloride Carbon Dioxide Anion Gap BUN Creatinine Creat Clearance w eGFR POC Glucometer 326 289 259 Random Glucose Calcium Total Bilirubin AST ALT Alkaline Phosphatase Total Protein Albumin Urine Color Urine Appearance Urine pH Ur Specific [place] Urine Protein Urine Glucose (UA) Urine Ketones Urine Blood Urine Nitrite Urine Bilirubin Urine Urobilinogen Ur Leukocyte Esterase Urine WBC (Auto) Urine RBC (Auto) Ur Epithelial Cells RPR Titer T.pallidum Ab ([facility])
== END 2018-05-11 09:15 | disposition home or self-care (01) | DRG 772 ==
LOC: YASAS 17:20 → Y3E 21:14
PROVIDERS: ADMIT Psychiatry & Neurology Psychiatry; ATTEND Psychiatry & Neurology Psychiatry
PROC: HZ42ZZZ Group Counseling for Substance Abuse Treatment, Cognitive-Behavioral (ICD-10-PCS; principal; 2018-05-04)
DX: F11.20 Opioid dependence, uncomplicated (principal); F13.20 Sedative, hypnotic or anxiolytic dependence, uncomplicated; F17.210 Nicotine dependence, cigarettes, uncomplicated; F31.9 Bipolar disorder, unspecified; E10.9 Type 1 diabetes mellitus without complications; Z79.4 Long term (current) use of insulin; I10 Essential (primary) hypertension; K85.80 Other acute pancreatitis without necrosis or infection; N28.9 Disorder of kidney and ureter, unspecified; B18.2 Chronic viral hepatitis C; R89.9 Unspecified abnormal finding in specimens from other organs, systems and tissues; Z86.19 Personal history of other infectious and parasitic diseases
CPT/HCPCS: 36415; 80053; 81003; 81015; 82962; 85027; 86593; 86780; 93005; 93010; J0475; J0735